=== PATIENT | female | born 1925 | race Caucasian/White ===

== ENCOUNTER 2017-03-08 09:42 | Inpatient (IN) | payer OTHER, BC ==
[~2017-03-08] VITALS: Ht 162.6 cm; Wt 73.2 kg
[~2017-03-08 09:42] MED LIST: ATV1 PO; CHOL100027 PO; CITA40TA12 PO; DTR/5 PO; FURO-85 PO; HYZ/50125 PO; MCRK/10 PO; METO-217 PO; RIVA1TAB4 PO; SULF800T23 PO
[2017-03-08] MEDS ORDERED: PANTOprazole INJ 80 MG in DEXTROSE 5% 100ML 100 ML IV SCH (11:00)
[2017-03-08 11:05] LABS: INR 1.1 (0.9-1.1); PTT PATIENT 31.4 SECONDS (21.0-31.0)
[2017-03-08 11:09] LABS: BASO % 0.4 %; BASO ABS # 0.03 K/uL (0-0.2); EOS % 2.3 %; EOS ABS # 0.18 K/uL (0-0.5); HEMATOCRIT 30.8 % (37-47); HEMOGLOBIN 9.5 g/dL (12.0-16.0); IG# 0.01 K/uL (0.00-0.02); LYMPH % 24.5 %; LYMPH ABS # 1.89 K/uL (1.2-3.4); MEAN CELL VOLUME 93.3 fL (80-100); MEAN CORPUSCULAR HEMOGLOBIN 28.8 pg (25-34); MEAN CORPUSCULAR HGB CONC 30.8 g/dl (32-36); MONO % 4.8 %; MONO ABS # 0.37 K/uL (0.11-0.59); NEUT % 67.9 %; NEUT ABS # 5.22 K/uL (1.4-6.5); PLATELET COUNT 272 K/uL (130-400); RED CELL DISTRIBUTION WIDTH CV 16.4 % (11.5-14.5); RED CELL DISTRIBUTION WIDTH SD 56.7 fL (36.4-46.3)
[2017-03-08] MEDS ORDERED: [UNRECOGNIZED DRUG - CODE] TOP (11:09)
[2017-03-08] MEDS ORDERED: METO-217 PO (11:09)
[2017-03-08] MEDS ORDERED: LOSA50TA6 PO (11:09)
[2017-03-08] MEDS ORDERED: SENNTAB23 PO (11:09)
[2017-03-08] MEDS ORDERED: LORA-741 PO (11:09)
[2017-03-08] MEDS ORDERED: RIVA1.5T PO (11:09)
[2017-03-08] MEDS ORDERED: LEVO-17 PO (11:09)
[2017-03-08] MEDS ORDERED: CHOL1000 PO (11:09)
[2017-03-08] MEDS ORDERED: ACET-1256 PO (11:09)
[2017-03-08] MEDS ORDERED: CITA20TA9 PO (11:09)
[2017-03-08] MEDS ORDERED: FURO-85 PO (11:09)
[2017-03-08] MEDS ORDERED: DICL1GEL12 TOP (11:09)
[2017-03-08 11:24] LABS: ALBUMIN 2.7 gm/dl (3.4-5.0); BLOOD UREA NITROGEN 57 mg/dl (7-18); CALCIUM 8.4 mg/dl (8.5-10.1); CARBON DIOXIDE 23 mmol/L (21-32); CREATININE 1.81 mg/dl (0.60-1.20); GLUCOSE 87 mg/dl (70-99); LIPASE 110 U/L (73-393); POTASSIUM 5.2 mmol/L (3.5-5.1); SODIUM 138 mmol/L (136-145)
[2017-03-08 11:35] LABS: ALKALINE PHOSPHATASE 128 U/L (45-117); ALT/SGPT 15 U/L (12-78); AST/SGOT 22 U/L (15-37); TOTAL PROTEIN 6.9 gm/dl (6.4-8.2)
[2017-03-08] MEDS ORDERED: DEXTROSE 50% 50 ML SYR IV STA (11:39)
[2017-03-08] MEDS ORDERED: NovoLIN-R INSULIN PER UNIT CHARGE IV STA (11:39)
[2017-03-08] MEDS ORDERED: ONDANSETRON INJ 2 MG/ML 2 ML VIAL IV PRN (12:45)
[2017-03-08] MEDS ORDERED: FURO20TA PO (13:23)
[2017-03-08] MEDS ORDERED: CONSULT PHARMACY STA (13:29)
[2017-03-08 13:45] VITALS: Ht 162.6 cm; Wt 73.2 kg
[2017-03-08] MEDS ORDERED: DOCUSATE SODIUM/SENNA 50/8.6MG TAB PO PRN (13:45)
--- NOTE | 2017-03-08 14:07 | Gastrointestinal Consultation ---
Gastrointestinal Consultation Date of Consultation: Mar 08, 2017 Attending Physician: WILLIE Palomo Consulting Physician: Miguel Reason for Consultation: melena History of Present Illness Patient is a 89 year old female w/ history of PE, afib on xarelto (last dose 03/07/17 at 1700) who presented through the ED for evaluation of diarrhea and dark stools. Pt was seen and evaluated, chart reviewed. Seen in the ED in collaboration with Dr. Rivera. Pt notes she was started on PO FE by her PCP for anemia. She notes prior to started FE she was having brown stools. Once she was started on FE, she was having dark, formed stools. No BRB. Woke up last night with urge to have BM. Had numerous episodes of dark, black stools. Again, no BRB. No abdominal pain. Has some nausea, no vomiting. Was on Bactrim for cellulitis of right leg. Today, no fever, chills, CP, SOB. She is cold. VSS. HGB 9.5. 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 Social History Smoking Status: Never Smoker Drug Use: none Marital Status: Housing Status: assisted living Occupation Status: retired Allergies Coded Allergies: Celecoxib (Verified Adverse Reaction, Unknown, gi upset, 03/08/17) Current Medications Home Meds and Scripts Medications Dose Route/Sig Max Daily Dose Days Date Category Dose Instructions Lasix (Furosemide) 20 Mg Tab 20 Mg PO 3XWK PRN 03/08/17 Reported Cozaar (Losartan Potassium) 50 Mg Tab 50 Mg PO PM 03/08/17 Reported Vitamin D3 (Cholecalciferol) 1,000 Unit Tab 1 Tab PO DAILY 90 03/08/17 Reported Tylenol (Acetaminophen) 500 Mg Tab 500 Mg PO BID 03/08/17 Reported Celexa (Citalopram Hydrobromide) 20 Mg Tab 20 Mg PO QAM 03/08/17 Reported Toprol Xl (Metoprolol Succinate) 50 Mg Tabcr 50 Mg PO QAM 03/08/17 Reported Stool Softener (Sennosides-Docusate Sodium) 1 Tab Tab 1 Tab PO DAILY PRN 03/08/17 Reported Xarelto (Rivaroxaban) 15 Mg Tab 15 Mg PO PM 03/08/17 Reported Tinactin (Tolnaftate) 1 % Aer Unknown Dose TOP UD 03/08/17 Reported APPLY BETWEEN ABDOMINAL FOLDS Ativan (Lorazepam) 0.5 Mg Tab 0.5 Mg PO TID PRN 03/08/17 Reported Voltaren 1% Top Gel (Diclofenac Sodium (Topical)) 1 % Gel 2 Gm TOP TID 03/08/17 Reported Bactrim Ds 800MG/160MG (Trimethoprim/Sulfamethoxazole) Tab 1 Tab PO BID 02/26/17 Reported Review of Systems Respiratory: No cough, No shortness of breath Cardiac: No chest pain, No edema Abdomen: + diarrhea, + GI bleeding, No pain, No nausea, No vomiting, No constipation Physical Exam Date Time Temp Pulse Resp B/P (MAP) Pulse Ox O2 Delivery O2 Flow Rate FiO2 03/08/17 13:18 96 03/08/17 12:24 86 18 124/68 94 Room Air 03/08/17 10:14 90 03/08/17 09:55 36.5 91 19 119/57 97 Room Air General Appearance: no apparent distress ENT: hearing grossly normal Neck: supple Respiratory/Chest: lungs clear, normal breath sounds Abdomen: normal bowel sounds, non tender, soft, no organomegaly Extremities: + pertinent finding (RLE cellulitis) Neurologic/Psych: alert, normal mood/affect Skin: + pallor Laboratory Results Last 24 Hours Test 03/08/17 10:15 03/08/17 10:40 03/08/17 12:19 White Blood Count 7.70 K/uL Red Blood Count 3.30 M/uL Hemoglobin 9.5 g/dL Hematocrit 30.8 % Mean Corpuscular Volume 93.3 fL Mean Corpuscular Hemoglobin 28.8 pg Mean Corpuscular Hemoglobin Concent 30.8 g/dl Platelet Count 272 K/uL Mean Platelet Volume 9.0 fL Neutrophils (%) (Auto) 67.9 % Lymphocytes (%) (Auto) 24.5 % Monocytes (%) (Auto) 4.8 % Eosinophils (%) (Auto) 2.3 % Basophils (%) (Auto) 0.4 % Neutrophils # (Auto) 5.22 K/uL Lymphocytes # (Auto) 1.89 K/uL Monocytes # (Auto) 0.37 K/uL Eosinophils # (Auto) 0.18 K/uL Basophils # (Auto) 0.03 K/uL RDW Standard Deviation 56.7 fL RDW Coefficient of Variation 16.4 % Immature Granulocyte % (Auto) 0.1 % Immature Granulocyte # (Auto) 0.01 K/uL Prothrombin Time 12.0 SECONDS Prothromb Time International Ratio 1.1 Activated Partial Thromboplast Time 31.4 SECONDS Partial Thromboplastin Ratio 1.2 Sodium Level 138 mmol/L Potassium Level 5.2 mmol/L Chloride Level 108 mmol/L Carbon Dioxide Level 23 mmol/L Anion Gap 7.0 mmol/L Blood Urea Nitrogen 57 mg/dl Creatinine 1.81 mg/dl Est Creatinine Clear Calc Drug Dose 20.7 ml/min Estimated GFR () 28.2 Estimated GFR (Non- 24.4 BUN/Creatinine Ratio 31.4 Random Glucose 87 mg/dl Calcium Level 8.4 mg/dl Total Bilirubin 0.4 mg/dl Direct Bilirubin 0.2 mg/dl Aspartate Amino Transf (AST/SGOT) 22 U/L Alanine Aminotransferase (ALT/SGPT) 15 U/L Alkaline Phosphatase 128 U/L Troponin I < 0.015 ng/ml Total Protein 6.9 gm/dl Albumin 2.7 gm/dl Lipase 110 U/L Chemistry Specimen Hemolysis Urine Color YELLOW Urine Appearance TURBID Urine pH 5.5 Urine Specific [place] 1.017 Urine Protein TRACE Urine Glucose (UA) NEG Urine Ketones NEG Urine Occult Blood 2+ Urine Nitrite POS Urine Bilirubin NEG Urine Urobilinogen NEG Urine Leukocyte Esterase LARGE Urine WBC (Auto) >30 /hpf Urine RBC (Auto) 5-10 /hpf Urine Hyaline Casts (Auto) 1-5 /lpf Urine Epithelial Cells (Auto) 10-20 /lpf Urine Bacteria (Auto) 4+ Urine Crystals Bedside Glucose 86 mg/dl Impression Patient is a 89 year old female w/ history of afib and PE on xarelto (last dose 03/07/17) who presented to the ED for evaluation of diarrhea, stools are dark x 24 hours. No hematemesis, coffee ground emesis, BRBPR. Was started on FE last week after found to be anemic by PCP. Was on Bactrim for cellulitis. UGI bleed vs infectious colitis. will screen for stool and plan for EGD tomorrow. GI is ok for liquid diet today. Plan Hold anticoagulation Trend H&H Monitor stools Transfuse PRN IV PPI Stool culture, stool for c.diff NPO after midnight for EGD if c.diff is negative Please call with questions or concerns. I saw and evaluated the patient. She was brought to the emergency room with new onset diarrhea. She notes that she's had black stool for approximately 2 weeks since starting Xarelto and iron therapy for anemia. Patient notes that it is somewhat sticky but is unable to further described it. She denies having nausea vomiting fevers chills or difficulty with swallowing. She recalls having several upper endoscopies in the past due to problems with dysphagia. Her last upper endoscopy was over 10 years ago. She is unsure if she had a recent colonoscopy. Physical examination No obvious distress No abdominal tenderness Impression: Patient referred for altered bowel habits and a question of melena. Unfortunately she is on iron therapy which makes determine if she has a gastric intestinal hemorrhage somewhat difficult. I would suggest that the stool be screened for C. difficile as she has had a recent course of antibiotics. I would also recommend she be started on a Protonix drip. We will plan for upper endoscopy on Sunday as the patient had her last dose of Xarelto yesterday. Recommendations May have clear liquids today Protonix drip Nothing by mouth at midnight for upper endoscopy tomorrow Send stool for C. difficile Please call with any questions or concerns
[2017-03-08] MEDS ORDERED: VANCOMYCIN CONSULT ACTIVE PRN (14:15)
[2017-03-08] MEDS ORDERED: PIPERACILL/TAZOBAC CONSULT ACTIVE PRN (14:30)
[2017-03-08] MEDS ORDERED: PIPERACILLIN/TAZOBACTAM 4.5 GM/100ML D5W IV ONE (14:45)
--- NOTE | 2017-03-08 14:48 | DIAGNOSTIC IMAGING REPORT ---
R FOOT 2 VIEWS CLINICAL HISTORY: Nonhealing wounds. Evaluate for osteomyelitis. COMPARISON: 12/30/2014 DISCUSSION: The bones are osteopenic. There is a plantar calcaneal spur. There are no acute fractures. Evaluation of the phalanges is difficult as they are in flexion. There is absence of the distal one half of the proximal phalanx of the second toe. Correlation with prior surgical history will be necessary. There is foreshortening of distal phalanx the great toe. Correlation with prior surgery will be necessary. IMPRESSION: 1. Absence of the distal one half of the proximal phalanx of the second toe. Correlation with prior surgical history is recommended. In the absence of prior surgery, the findings are viewed as suspicious for osteomyelitis 2. There is foreshortening of distal phalanx of the great toe. Correlation with prior surgical history is recommended. In the absence of prior surgery, the findings are viewed as suspicious for osteomyelitis. 3. Difficult study to interpret due to flexion deformities of the phalanges. Electronically signed by: Adarsh Cortes M.D. 03/08/2017 2:46 PM Dictated Date/Time: 03/08/2017 2:42 PM
[2017-03-08] MEDS ORDERED: VANCOMYCIN IV 1,750 MG in SODIUM CHLORIDE 0.9% 500ML 500 ML IV ONE (15:00)
[2017-03-08 15:27] VITALS: BP 115/64; PULSE 98; TEMP 36.7; O2SAT 99
--- NOTE | 2017-03-08 15:37 | EMERGENCY ROOM VISIT NOTE ---
History Report prepared by Jitendra: Adeel King Under the Supervision of: Dr. Bob Guzman M.D. First contact with patient: 10:33 Chief Complaint: NAUSEA Stated Complaint: ILLNESS Nursing Triage Summary: Nausea and inablity to eat for several days with large black BM this a.m. Patient just taken off of Bactrim and iron two days ago. History of Present Illness The patient is a 89 year old female who presents to the Emergency Room with complaints of intermittent episodes of "black, tarry" stool beginning a few days ago. She was on iron tablets, but stopped taking them two days ago. She is on Xarelto, and had her most recent dose at 5pm yesterday (about 16.5 hours ago) . The patient also complains of nausea. She was recently on Bactrim for cellulitis of the legs. She states that she has been nauseous for the past five days. The patient denies fevers, chest pain, SOB, abdominal pain, or vomiting. She lives alone. She states that she has noticed some blood in her stool recently as well. The patient has a history of black stool while taking iron tablets. Source of History: patient Onset: A few days ago Position: other (global) Symptom Intensity: Quality: other ("black, tarry" stool) Timing: intermittent (episodes) Associated Symptoms: + nausea, No fevers, No chest pain, No SOB, No vomiting , No abdominal pain Review of Systems See HPI for pertinent positives & negatives. A total of 10 systems reviewed and were otherwise negative. Past Medical & Surgical Medical Problems: (1) WILLIAN (acute kidney injury) (2) Arthritis of back (3) Arthritis of knee, right (4) Arthritis of left knee (5) Atrial fibrillation (6) Bilateral leg weakness (7) DVT (deep venous thrombosis) (8) Pulmonary embolism Surgical Problems: (1) History of back surgery Family History Patient reports no known family medical history. Social History Smoking Status: Never Smoker Drug Use: none Marital Status: Housing Status: assisted living Occupation Status: retired Current/Historical Medications Scheduled Acetaminophen (Tylenol), 500 MG PO BID Cholecalciferol (Vitamin D3), 1 TAB PO DAILY Citalopram Hydrobromide (Celexa), 20 MG PO QAM Diclofenac Sodium (Topical) (Voltaren 1% Top Gel), 2 GM TOP TID Losartan Potassium (Cozaar), 50 MG PO PM Metoprolol Succinate (Toprol Xl), 50 MG PO QAM Rivaroxaban (Xarelto), 15 MG PO PM Sulfa/Trimethoprim (Bactrim Ds 800MG/160MG), 1 TAB PO BID Tolnaftate (Tinactin), Unknown Dose TOP UD Scheduled PRN Furosemide (Lasix), 20 MG PO 3XWK PRN for edema Lorazepam (Ativan), 0.5 MG PO TID PRN for Anxiety Sennosides-Docusate Sodium (Stool Softener), 1 TAB PO DAILY PRN for Constipation Allergies Coded Allergies: Celecoxib (Verified Adverse Reaction, Unknown, gi upset, 03/08/17) Physical Exam Vital Signs Date Time Temp Pulse Resp B/P (MAP) Pulse Ox O2 Delivery O2 Flow Rate FiO2 03/08/17 14:00 70 20 101/54 100 Room Air 03/08/17 13:45 Room Air 03/08/17 13:18 96 03/08/17 12:24 86 18 124/68 94 Room Air 03/08/17 10:14 90 03/08/17 09:55 36.5 91 19 119/57 97 Room Air Physical Exam Constitutional: Vital signs reviewed. Eyes: Pupils are equal round reactive to light. Conjunctiva are noninjected. ENT: Pharynx is clear without erythema or exudate. Mucous membranes are moist. Neck supple without meningeal signs. Respiratory: Clear to auscultation bilaterally. Breath sounds are equal bilaterally. Cardiovascular: Irregularly irregular rhythm and normal rate. No rubs or gallops. GI: Soft, nondistended and nontender. Bowel sounds are present. Rectal: Guaiac positive, melanotic stool. No gross blood. Musculoskeletal: Excoriations to the right leg. Bandaged toes. Integumentary: No cyanosis. Neurological: The patient is awake and alert. No focal deficits. Psychiatric: Normal affect. Medical Decision & Procedures Laboratory Results 03/08/17 10:15 Red Blood Count 3.30, Mean Corpuscular Volume 93.3, Mean Corpuscular Hemoglobin 28.8, Mean Corpuscular Hemoglobin Concent 30.8, Mean Platelet Volume 9.0, Neutrophils (%) (Auto) 67.9, Lymphocytes (%) (Auto) 24.5, Monocytes (%) (Auto) 4.8, Eosinophils (%) (Auto) 2.3, Basophils (%) (Auto) 0.4, Neutrophils # (Auto) 5.22, Lymphocytes # (Auto) 1.89, Monocytes # (Auto) 0.37, Eosinophils # (Auto) 0.18, Basophils # (Auto) 0.03 03/08/17 10:15 Test 03/08/17 10:15 03/08/17 10:40 03/08/17 14:53 White Blood Count 7.70 K/uL (4.8-10.8) Red Blood Count 3.30 M/uL (4.2-5.4) Hemoglobin 9.5 g/dL (12.0-16.0) Hematocrit 30.8 % (37-47) Mean Corpuscular Volume 93.3 fL (80-100) Mean Corpuscular Hemoglobin 28.8 pg (25-34) Mean Corpuscular Hemoglobin Concent 30.8 g/dl (32-36) Platelet Count 272 K/uL (130-400) Mean Platelet Volume 9.0 fL (7.4-10.4) Neutrophils (%) (Auto) 67.9 % Lymphocytes (%) (Auto) 24.5 % Monocytes (%) (Auto) 4.8 % Eosinophils (%) (Auto) 2.3 % Basophils (%) (Auto) 0.4 % Neutrophils # (Auto) 5.22 K/uL (1.4-6.5) Lymphocytes # (Auto) 1.89 K/uL (1.2-3.4) Monocytes # (Auto) 0.37 K/uL (0.11-0.59) Eosinophils # (Auto) 0.18 K/uL (0-0.5) Basophils # (Auto) 0.03 K/uL (0-0.2) RDW Standard Deviation 56.7 fL (36.4-46.3) RDW Coefficient of Variation 16.4 % (11.5-14.5) Immature Granulocyte % (Auto) 0.1 % Immature Granulocyte # (Auto) 0.01 K/uL (0.00-0.02) Prothrombin Time 12.0 SECONDS (9.0-12.0) Prothromb Time International Ratio 1.1 (0.9-1.1) Activated Partial Thromboplast Time 31.4 SECONDS (21.0-31.0) Partial Thromboplastin Ratio 1.2 Anion Gap 7.0 mmol/L (3-11) Est Creatinine Clear Calc Drug Dose 20.7 ml/min Estimated GFR () 28.2 Estimated GFR (Non- 24.4 BUN/Creatinine Ratio 31.4 (10-20) Calcium Level 8.4 mg/dl (8.5-10.1) Total Bilirubin 0.4 mg/dl (0.2-1) Direct Bilirubin 0.2 mg/dl (0-0.2) Aspartate Amino Transf (AST/SGOT) 22 U/L (15-37) Alanine Aminotransferase (ALT/SGPT) 15 U/L (12-78) Alkaline Phosphatase 128 U/L (45-117) Troponin I < 0.015 ng/ml (0-0.045) Total Protein 6.9 gm/dl (6.4-8.2) Albumin 2.7 gm/dl (3.4-5.0) Lipase 110 U/L (73-393) Chemistry Specimen Hemolysis Urine Color YELLOW Urine Appearance TURBID (CLEAR) Urine pH 5.5 (4.5-7.5) Urine Specific [place] 1.017 (1.000-1.030) Urine Protein TRACE (NEG) Urine Glucose (UA) NEG (NEG) Urine Ketones NEG (NEG) Urine Occult Blood 2+ (NEG) Urine Nitrite POS (NEG) Urine Bilirubin NEG (NEG) Urine Urobilinogen NEG (NEG) Urine Leukocyte Esterase LARGE (NEG) Urine WBC (Auto) >30 /hpf (0-5) Urine RBC (Auto) 5-10 /hpf (0-4) Urine Hyaline Casts (Auto) 1-5 /lpf (0-5) Urine Epithelial Cells (Auto) 10-20 /lpf (0-5) Urine Bacteria (Auto) 4+ (NEG) Urine Crystals (NONE PRSENT) Bedside Glucose 80 mg/dl (70-90) Laboratory results as reviewed by me. Medications Administered Medications (Trade) Dose Ordered Sig/Everardo Route Start Time Stop Time Status Last Admin Dose Admin Insulin Human Regular (novoLIN-R U-100 PER UNIT) 5 units NOW STAT IV 03/08/17 11:39 03/08/17 11:41 DC 03/08/17 11:39 5 UNITS Dextrose (Dextrose 50% 50ML Syringe) 30 ml NOW STAT IV 03/08/17 11:39 03/08/17 11:41 DC 03/08/17 12:18 30 ML ECG Indication: other (hyperkalemia) Rate (beats per minute): 85 Rhythm: atrial fibrillation Findings: other (Low voltage QRS. No prolonged QT or hyperacute T-waves. ) ED Course 1040: The patient was evaluated in room C6. A complete history and physical exam was performed. 1100: Ordered Pantoprazole Sodium 80 mg/Dextrose 120 mL @ 400 mL/hr IV. 1139: Ordered Dextrose 50% 50 mL IV, Novolin-R U-100 per units 5 units IV. 1140: I reassessed the patient. She is resting comfortably. Her blood pressure is 116/65, and her blood pressure is 90 bpm. I discussed test results and treatment plan with the patient. She verbalized agreement and understanding of the treatment plan. The patient will be evaluated for further management. Medical Decision This is an 89-year-old female who presents with black and tarry stools. Differential diagnosis includes GI bleed, ingestion of iron tablets, anemia, hypercoagulable state, peptic ulcer disease. I did perform a limited focused review of portions of the patient's old chart on the electronic medical record. The patient has had no recent pertinent visits to this hospital. I did evaluate the patient as noted above. Patient is presenting with black and tarry stools. She is guaiac positive on exam. She is on Xarelto which she took at 5 PM yesterday. This is for atrial fibrillation. IV access was established. The patient was placed on a continuous school lunch monitor. I did treat her with Protonix IV. I did order and personally review the patient's 12- lead EKG as described above. I did order and review the patient's blood work as noted in the electronic medical record. She is anemic and has acute kidney injury with hyperkalemia. I did treat her with IV insulin and glucose. Urinalysis does show signs of infection as well. I did discuss case with the hospitalist and outsole caser. Medication Reconcilliation Current Medication List: was personally reviewed by me Blood Pressure Screening Patient's blood pressure: Normal blood pressure Blood pressure disposition: Did not require urgent referral Consults Time Called: 1144 Consulting Phys[facility] Returned Call: [phone] I spoke with Genna TAPIA of [facility]. We discussed the patient and her results. The patient will be further evaluated by Trent. Impression Primary Impression: Acute GI bleeding Additional Impressions: Anticoagulated Anemia WILLIAN (acute kidney injury) Hyperkalemia UTI (urinary tract infection) Critical Care I have personally spent greater than 35 minutes of critical care time in the direct management of this patient. This includes bedside care, interpretation of diagnostic studies, and testing, discussion with consultants, patient, and family members, and other required patient management activities. This 35 minutes is in excess of all separately billable procedures. Scribe Attestation The scribe's documentation has been prepared under my direct and personally reviewed by me in its entirety. I confirm that the note above accurately reflects all work, treatment, procedures, and medical decision making performed by me. Departure Information Dispostion Being Evaluated By Hospitalist Referrals Asia Burton M.D. (PCP) Patient Instructions My [facility] Problem Qualifiers Additional Impressions: Anemia Anemia type: unspecified type Qualified Codes: D64.9 - Anemia, unspecified UTI (urinary tract infection) Urinary tract infection type: site unspecified Hematuria presence: with hematuria Qualified Codes: N39.0 - Urinary tract infection, site not specified ; R31.9 - Hematuria, unspecified
[2017-03-08] MEDS ORDERED: PIPERACILL/TAZOBAC IV 3.375 GM in DEXTROSE 5% 100ML IV ONE (16:30)
--- NOTE | 2017-03-08 16:44 | Pharmacy Progress Note ---
Pharmacy Abx Dose Short Note Date of Service Mar 08, 2017. Assessment & Plan Assessment 89 year old female receiving VANCOMYCIN AND ZOSYN for treatment of UTI/wound infection. Patient with poor renal function, this will be monitored closely. It is noted that she was on bactrim as an outpatient. Day # 1 of antimicrobial therapy. Plan Vancomycin. * Load with 1750mg X 1 now (never given in ER, confirmed with ER nurse) * Initiate dose of 1250 mg IV every 48 hours on 03/10 * Trough or random level ordered as clinically indicated Zosyn * 3.375mg now (4.5 dose never given in the ER, confirmed with nurse) * 3.375mg q 8, will adjust if renal function declines again tomorrow Pharmacy will continue to follow and will adjust dose/frequency as necessary. Thank you.
[2017-03-08] MEDS: SODIUM CHLORIDE 0.9% 1000ML 1,000 ML IV SCH (16:54)
[2017-03-08] MEDS ORDERED: PANTOprazole INJ 80 MG in DEXTROSE 5% 100ML IV ONE (17:30)
--- NOTE | 2017-03-08 17:49 | NUR ---
Pt seen due to WOCN notification. Please refer to linked assessment Addendum: 03/08/17 at [address] Amended: Links added.
--- NOTE | 2017-03-08 18:12 | History and Physical ---
History & Physical Date & Time of Service: Mar 08, 2017 ~ 12:30 Chief Complaint: Diarrhea Primary Care Physician: Asia Burton M.D. History of Present Illness 89 year old female who presents to the ED with diarrhea. Patient is somewhat a poor historian. I discussed the case with patient's PCP, Dr. Burton. She reports that the patient had been living with her daughter in [place] until about 4 months ago. She saw the patient in the office at the beginning of January and labs showed a new anemia with hgb 9.9 with low iron levels. She was started on iron replacement at that time. Patient also has been following with the wound care center for wounds of her right foot. She was recently placed on Bactrim due to would culture from 02/19/17 growing MRSA. Patient reports her stools have been dark since starting the iron. She also has been constipated at times. She reports nausea and poor appetite since being on the Bactrim. This morning patient reports severe diarrhea that was black in color. She denies BRBPR, abdominal pain, or vomiting. She denies fever and chills. No chest pain or shortness of breath. She denies lightheadedness, dizziness, diaphoresis, or syncopal events. No urinary symptoms. In the ER, patient's hgb is 9.5, creat is 1.8 (up from 0.9 baseline), K+ is mildly high at 5.2. Patient was given insulin and D50 and Protonix 80mg IV. Past Medical/Surgical History Medical Problems: (1) Acoustic neuroma Status: Chronic (2) Atrial fibrillation Status: Chronic (3) Discitis Permanent Comment: s/p surgery resulting in incomplete paraplegia Status: Resolved (4) Duodenitis Status: Resolved (5) Esophageal stricture Status: Chronic (6) H. pylori infection Status: Resolved (7) HTN (hypertension) Status: Chronic (8) Incomplete paraplegia Status: Chronic (9) MRSA (methicillin resistant Staphylococcus aureus) Status: Chronic (10) Pulmonary embolism Status: Chronic (11) PVD (peripheral vascular disease) Status: Chronic Surgical Problems: (1) History of back surgery Status: Chronic (2) S/P dilatation of esophageal stricture Status: Chronic Family History non contributory due to patient's age Social History Smoking Status: Never Smoker Alcohol Use: none Housing status: lives alone Multi-Drug Resistant Organisms History of MDRO: Yes Type of MDRO: MRSA Allergies Coded Allergies: Celecoxib (Verified Adverse Reaction, Unknown, gi upset, 03/08/17) Home Medications Scheduled Acetaminophen (Tylenol), 500 MG PO BID Cholecalciferol (Vitamin D3), 1 TAB PO DAILY Citalopram Hydrobromide (Celexa), 20 MG PO QAM Diclofenac Sodium (Topical) (Voltaren 1% Top Gel), 2 GM TOP TID Losartan Potassium (Cozaar), 50 MG PO PM Metoprolol Succinate (Toprol Xl), 50 MG PO QAM Rivaroxaban (Xarelto), 15 MG PO PM Sulfa/Trimethoprim (Bactrim Ds 800MG/160MG), 1 TAB PO BID Tolnaftate (Tinactin), Unknown Dose TOP UD Scheduled PRN Furosemide (Lasix), 20 MG PO 3XWK PRN for edema Lorazepam (Ativan), 0.5 MG PO TID PRN for Anxiety Sennosides-Docusate Sodium (Stool Softener), 1 TAB PO DAILY PRN for Constipation Review of Systems ROS per HPI, all other systems reviewed and negative Physical Exam Vital Signs Date Time Temp Pulse Resp B/P (MAP) Pulse Ox O2 Delivery O2 Flow Rate FiO2 03/08/17 15:27 36.7 98 18 115/64 (81) 99 Room Air 03/08/17 14:00 70 20 101/54 100 Room Air 03/08/17 13:45 Room Air 03/08/17 13:18 96 03/08/17 12:24 86 18 124/68 94 Room Air 03/08/17 10:14 90 03/08/17 09:55 36.5 91 19 119/57 97 Room Air General Appearance: WD/WN, no apparent distress, + pertinent finding ( chronically ill appearing) Head: normocephalic, atraumatic Eyes: normal inspection, EOMI, sclerae normal ENT: hearing grossly normal, + pertinent finding (dry mucous membranes) Neck: supple, no JVD, trachea midline Respiratory/Chest: lungs clear, normal breath sounds, no respiratory distress Cardiovascular: no edema, + irregularly irregular (rate controlled), + abnormal peripheral pulses (diminished pedal pulses) Abdomen/GI: normal bowel sounds, non tender, soft, no organomegaly Extremities/Musculoskelatal: normal inspection, no calf tenderness, no pedal edema Neurologic/Psych: no motor/sensory deficits, alert, normal mood/affect, oriented x 3 Skin: + pertinent finding (right foot with ulcers noted to the 2nd and 3rd toes , base of the 2nd metatarsal, large ulcer to the dorsal aspect of the foot; foul odor; scattered abrasions over the anterior aspect of the right lu) Diagnostics Laboratory Results Results Past 24 Hours Test 03/08/17 10:15 03/08/17 10:40 03/08/17 12:19 03/08/17 14:53 Range/Units White Blood Count 7.70 4.8-10.8 K/uL Red Blood Count 3.30 4.2-5.4 M/uL Hemoglobin 9.5 12.0-16.0 g/dL Hematocrit 30.8 37-47 % Mean Corpuscular Volume 93.3 80-100 fL Mean Corpuscular Hemoglobin 28.8 25-34 pg Mean Corpuscular Hemoglobin Concent 30.8 32-36 g/dl Platelet Count 272 130-400 K/uL Mean Platelet Volume 9.0 7.4-10.4 fL Neutrophils (%) (Auto) 67.9 % Lymphocytes (%) (Auto) 24.5 % Monocytes (%) (Auto) 4.8 % Eosinophils (%) (Auto) 2.3 % Basophils (%) (Auto) 0.4 % Neutrophils # (Auto) 5.22 1.4-6.5 K/uL Lymphocytes # (Auto) 1.89 1.2-3.4 K/uL Monocytes # (Auto) 0.37 0.11-0.59 K/uL Eosinophils # (Auto) 0.18 0-0.5 K/uL Basophils # (Auto) 0.03 0-0.2 K/uL RDW Standard Deviation 56.7 36.4-46.3 fL RDW Coefficient of Variation 16.4 11.5-14.5 % Immature Granulocyte % (Auto) 0.1 % Immature Granulocyte # (Auto) 0.01 0.00-0.02 K/uL Prothrombin Time 12.0 9.0-12.0 SECONDS Prothromb Time International Ratio 1.1 0.9-1.1 Activated Partial Thromboplast Time 31.4 21.0-31.0 SECONDS Partial Thromboplastin Ratio 1.2 Sodium Level 138 136-145 mmol/L Potassium Level 5.2 3.5-5.1 mmol/L Chloride Level 108 98-107 mmol/L Carbon Dioxide Level 23 21-32 mmol/L Anion Gap 7.0 3-11 mmol/L Blood Urea Nitrogen 57 7-18 mg/dl Creatinine 1.81 0.60-1.20 mg/dl Est Creatinine Clear Calc Drug Dose 20.7 ml/min Estimated GFR () 28.2 Estimated GFR (Non- 24.4 BUN/Creatinine Ratio 31.4 10-20 Random Glucose 87 70-99 mg/dl Calcium Level 8.4 8.5-10.1 mg/dl Total Bilirubin 0.4 0.2-1 mg/dl Direct Bilirubin 0.2 0-0.2 mg/dl Aspartate Amino Transf (AST/SGOT) 22 15-37 U/L Alanine Aminotransferase (ALT/SGPT) 15 12-78 U/L Alkaline Phosphatase 128 45-117 U/L Troponin I < 0.015 0-0.045 ng/ml Total Protein 6.9 6.4-8.2 gm/dl Albumin 2.7 3.4-5.0 gm/dl Lipase 110 73-393 U/L Chemistry Specimen Hemolysis Urine Color YELLOW Urine Appearance TURBID CLEAR Urine pH 5.5 4.5-7.5 Urine Specific [place] 1.017 1.000-1.030 Urine Protein TRACE NEG Urine Glucose (UA) NEG NEG Urine Ketones NEG NEG Urine Occult Blood 2+ NEG Urine Nitrite POS NEG Urine Bilirubin NEG NEG Urine Urobilinogen NEG NEG Urine Leukocyte Esterase LARGE NEG Urine WBC (Auto) >30 0-5 /hpf Urine RBC (Auto) 5-10 0-4 /hpf Urine Hyaline Casts (Auto) 1-5 0-5 /lpf Urine Epithelial Cells (Auto) 10-20 0-5 /lpf Urine Bacteria (Auto) 4+ NEG Urine Crystals NONE PRSENT Bedside Glucose 86 80 70-90 mg/dl Test 03/08/17 16:21 Range/Units Microbiology Results 03/08/17 Blood Culture, Received Pending 03/08/17 Blood Culture, Received Pending 03/08/17 Urine Culture, Received Pending Diagnostic Radiology RIGHT FOOT XR IMPRESSION: 1. Absence of the distal one half of the proximal phalanx of the second toe. Correlation with prior surgical history is recommended. In the absence of prior surgery, the findings are viewed as suspicious for osteomyelitis 2. There is foreshortening of distal phalanx of the great toe. Correlation with prior surgical history is recommended. In the absence of prior surgery, the findings are viewed as suspicious for osteomyelitis. 3. Difficult study to interpret due to flexion deformities of the phalanges. Impression Assessment and Plan WILLIAN - admit to tele - patient presenting with diarrhea x 1 day, also nausea and poor appetite x 1 week; in the ED, found to have creat 1.8 (up from normal baseline) - WILLIAN likely prerenal due to poor PO intake in combination with Bactrim and ARB use - d/c Bactrim, hold ARB - IVF, follow renal functions ANEMIA - found to have hgb 9.9 about month ago at PCPs office - started on iron supplement - since starting iron, stools have been dark in color - difficult to exclude GI bleeding; patient also on Xarelto for a. fib and PE - hgb 9.5 today, no signs of gross bleeding - per GI, will have clear liquids tonight and NPO after midnight for EGD tomorrow; start PPI drip - hold Xarelto however need to resume ELENA given history of afib and life threatening PE NON HEALING RIGHT FOOT ULCERS, PAD - following with the wound center - culture from 02/19/17 growing MRSA; patient was started on Bactrim - patient was also evaluated by Dr. Mercer for possible vascular intervention - atrial US from 02/14/[address] Mercer note: right MARIBETH to be 0.59 consistent with moderate arterial insufficiency, 50-74% stenosis in the right distal SFA with possible short segment occlusion and collaterals, no significant disease in the left lower extremity system and MARIBETH was 0.94 - wound care consult - consult Dr. Mercer, case discussed with him - may need ID as well - foot XR concerning for possible osteomyelitis; unable to do MRI with contrast due to renal function; expect renal function to improve with IVF so will reevaluate renal function tomorrow and order MRI accordingly - empiric Vanco and Zosyn CHRONIC ATRIAL FIBRILLATION - rate controlled on metoprolol, will continue - anticoagulated with Xarelto, on hold as above HX PE - on Xarelto; on hold as above HTN - BP controlled, continue metoprolol - holding ARB due to WILLIAN DVT PROPHYLAXIS -SCDs due to anemia, possible GI bleed CODE STATUS - Patient is a full code without mechanical ventilation as per my discussion with her. DISPO - In my clinical judgment this beneficiary meets acute admission criteria, established by [facility], that includes being hospitalized through two midnights. - PT/OT, case management consults; expect patient will need placement post hospital stay ATTENDING ADDENDUM care coordinated with WILLIE Zimmerman please refer to her notes for full details, I agree with her notes patient seen and examined, records reviewed by myself as well on exam, patient seen resting in bed, comfortable denies abdominal pain, nausea no chest pain, dyspnea, dizziness minimal right foot pain no other symptoms VS noted and reviewed oriented x 2, not in distress, speaks in sentences with no effort nor accessory muscle use normal rate, regular rhythm, no murmurs clear breath sounds bilaterally non distended, soft, nontender right foot: (+) open wound on the dorsum with yellow discharge-surrounding erythema (+) open wound on the toes no neuro deficits Hg 9.5 Crea 1.8 ASSESSMENT/PLAN> DARK STOOLS, R/O GI BLEED IN THE SETTING OF XARELTO USE - also takes Iron supplement - Hg at baseline - GI Consulted, for EGD in AM Protonix ordered INFECTED CHRONIC RIGHT FOOT WOUND - follows at wound care center - ff up cultures - Vanco + Zosyn IV Xray no osteo- may need MRI if crea improves ACUTE RENAL FAILURE - IV fluids monitor other diagnoses and plan of care as per WILLIE Zimmerman's notes Kenney Kennedy MD Advanced Directives Existing Living Will: No Existing Power of Media Monitor: Yes VTE Prophylaxis VTE Risk Assessment Done? Y/N: Yes Risk Level: Moderate
[2017-03-08] MEDS: LORAZEPAM 0.5 MG TAB PO PRN (19:10)
[2017-03-08] MEDS ORDERED: PANTOprazole INJ 40 MG in SYRINGE 0 ML IV SCH (21:00)
[2017-03-08] MEDS: PANTOprazole INJ 40 MG in DEXTROSE 5% 100ML IV SCH (21:28)
[2017-03-08] MEDS: PIPERACILL/TAZOBAC IV 3.375 GM in DEXTROSE 5% 100ML IV SCH (22:23)
[2017-03-08 23:41] VITALS: BP 102/61; PULSE 99; TEMP 36.9; O2SAT 96
[2017-03-09] MEDS: PANTOprazole INJ 40 MG in DEXTROSE 5% 100ML IV SCH ×5 (02:42→21:54)
[2017-03-09] MEDS: SODIUM CHLORIDE 0.9% 1000ML 1,000 ML IV SCH ×3 (02:43→21:55)
--- NOTE | 2017-03-09 04:19 | NUR ---
ID NOTE: Patient is alert and oriented x4. VSS. She has been NPO except meds since midnight. She is a x2 assist turn/reposition. IV site is intact and patent infusing fluids per MD orders. Pain is controlled with PRN pain medications per MD orders. Call padilla and bedside table are within reach; she has been encouraged to ring for assistance. D/C uncertain at this time.
[2017-03-09] MEDS: PIPERACILL/TAZOBAC IV 3.375 GM in DEXTROSE 5% 100ML IV SCH ×3 (06:01→21:58)
[2017-03-09 07:04] VITALS: BP 105/55; PULSE 85; TEMP 36.8; O2SAT 99
--- NOTE | 2017-03-09 08:33 | Progress Note ---
Progress Note Date of Service Mar 09, 2017. (Brook Will ., WILLIE) Progress Note Pt seen and evaluated, chart reviewed. Offers no complaints this AM. Has continued to have stools, have not been able to get a stool sample to screen for c.diff. No fever, chills, CP, SOB, abd pain. Morning labs pending. No acute distress, heart RRR, lungs CTA but diminised at bases, abd soft, nondistended w / + bowel sounds. Please obtain stool sample for c.diff and culture. Please keep NPO for EGD. (Brook Will ., WILLIE) I saw and evaluated the patient. There has been no report of any recurrent melena overnight. We will proceed with upper endoscopy today to evaluate for evidence of peptic ulcer disease. (Christine Rivera, DO)
[2017-03-09 08:40] VITALS: BP 100/64; PULSE 76
[2017-03-09] MEDS: CHOLECALCIFEROL 1000 INTER.UNIT TAB PO SCH (08:44)
[2017-03-09] MEDS: CITALOPRAM 20 MG TAB PO SCH (08:44)
[2017-03-09] MEDS: METOPROLOL SUCC 50MG EXT REL TAB PO SCH (08:45)
[2017-03-09] MEDS: LORAZEPAM 0.5 MG TAB PO PRN ×2 (09:01→21:56)
--- NOTE | 2017-03-09 09:10 | NUR ---
Received referral to see pt for discharge planning. Spoke with Pt. Pt states she lives at home alone in a senior apartment ([address]) in [place]. Pt has elevator access to her apartment. Pt states her son Maximino, her boyfriend and two neighbors help her at home. She states she spends most of her time in a wheelchair. She is able to transfer to the wheelchair independently. She has a lift chair at home and wheelchair. Pt states she is active with [facility]. She states she is to start Waiver services next week with the [facility]. Pt plans to return home at discharge with [facility]. Referral faxed to [facility]. Case management will follow.
[2017-03-09 10:13] LABS: MEAN CELL VOLUME 93.6 fL (80-100); MEAN CORPUSCULAR HEMOGLOBIN 30.1 pg (25-34); MEAN CORPUSCULAR HGB CONC 32.1 g/dl (32-36); MEAN PLATELET VOLUME 8.7 fL (7.4-10.4); PLATELET COUNT 220 K/uL (130-400); RED CELL DISTRIBUTION WIDTH CV 16.3 % (11.5-14.5)
[2017-03-09 10:37] LABS: CALCIUM 7.7 mg/dl (8.5-10.1); CREATININE 1.45 mg/dl (0.60-1.20); POTASSIUM 4.4 mmol/L (3.5-5.1)
--- NOTE | 2017-03-09 11:54 | NUR ---
Received call from Ember at [facility]. she states they have had a lot of concerns about Pt at home. She does have a air value tester at the [facility]. But her waiver services are not going to be started for 8-12 weeks as she is on a waiting list. Babs states that Pt is not able to take care of herself. She relies heavily on her neighbors to help her. They neighbors are expressing frustration about having to help her all the time. She is asking them to do everything like cleaning and laundry. Per [facility], they are not doing it willingly. They only do it as she has no one else to help. Pt's does have a significant other that stays with her but he is blind and not able to help her at home. She has been incontinent lately and asking neighbors to help. Babs has been doing daily visits because there is no one that is teachable at home. They state Pt has a son, Maximino that lives in [place] but he does not come and visit to help often. (Maybe once or twice a month.) She states that Pt's POA is actually her daughter Radha. Her number is [phone]. She states that Radha and her daughter, Ginny are very involved with her care even though they live out of state. Pt also has a son, Edi that lives in [place] but he is not able to help much due to the distance. [facility] states they are not able to accept Pt in return as they do not feel it is a safe situation for Pt to return home. Will need to reach out to Pt's daughter, Radha and son, Edi to discuss concerns.
--- NOTE | 2017-03-09 13:22 | NUR ---
Left message for pt's daughter, Radha ([phone]) to discuss home health concerns and discharge planning. Left Case Management number for return call. Spoke with Pt's son, Edi. Pt had actually lived at rehab facility/shelter in [place]. She didn't live with his sister. He states the family had a lot of concerns when she return home. He states he is not sure who the actual POA is his mother. He states that the will talk to his brother, Maximino and his sister, Radha and inform them of Case Management concerns. Received call from Radha. Advised of home health's concerns about Pt returning home. She states that she is not Pt's POA. She states her daughter, Ginny is her medical POA. She states she lives in [place] and was getting a different story from her mother. Discussed the concerns home health's concerns. She is going to talk to her brothers. She states that her brother Maximino lives the closes and his number is [phone]. Pt will need PT/OT ordered to assist with d/c planning. Case Management will follow. Addendum: 03/09/17 at 1421 by Ana Wan Benjamin SERV Left message for Olive Jordan at the [facility] to determine when services are exactly supposed to start and to discuss concerns. Addendum: 03/09/17 at 1429 by Ana MCDOWELL Spoke with Olive Devine at the [facility]. She confirmed that Pt will not have services start next week. She states absolute best case scenario, services will start in 4-6 weeks but it could be longer. Advised of home health concerns. She also recommended PT/OT evals as Pt would need to be independent and safe with transfers to wheelchair prior to discharge in order to return to her apartment. that is a criteria of living in [place]. MD is aware of need for PT/OT evals. Case Management will follow.
--- NOTE | 2017-03-09 13:30 | NUR ---
CWOCN NOTE CONSULT RECEIVED FOR PT KNOWN TO THE WOUND CLINIC . CURRENT ORDERS REVIEWED. ON ASSESSMENT, THE WOUNDS ARE STABLE FROM LAST VISIT AT THE CLINIC WITH THIS NURSE. PLEASE SEE EMR FOR MEASUREMENTS. ALL BLE AND RIGHT FOOT WOUNDS DRESSED WITH AQUACEL AG. FOOT WOUNDS DRESSED WITH 4X4 AND KERLIX TO MANAGE DRAINAGE AND STAY IN PLACE. THE OPEN DRAINING AREAS ON THE LEGS ARE TO BE COVERED WITH OPTIFOAM OVER THE AQUACEL AG. WITH INTERVENTIONAL CARDIOLOGY HAS BEEN CONSULTED. HE IS KNOWN TO THE PT FROM THE WOUND CLINIC VISITS. PT HAS AN OPEN AREA ON HER LEFT BUTTOCK THAT PT STATES SHE HAS HAD FOR "A WHILE." THE APPEARANCE IS CONSISTENT WITH THE APPEARANCE OF MOISTURE BREAKDOWN. THIS AREA WAS TREATED WITH STOMA POWDER AND BARRIER CREAM, TO BE APPLIED DAILY AND PRN.. PT ON ACCUMAX MATTRESS, HEEL FOAM AND SACRAL BORDER IN PLACE, SKIN IN THESE AREAS INTACT. WAFFLE BOOTS TO BE ORDERED.
--- NOTE | 2017-03-09 14:41 | Progress Note ---
Medicine Progress Note Date & Time of Visit: Mar 09, 2017 at 13:58. Subjective Pt was seen and examined Lying in bed with no distress Pt said that she feels fine She said that she is hungry because she has been NPO for the EGD She said that since she had her bad diarrhea yesterday she has not had any diarrhea She said that she usually constipates she said that her dark stool is due to the iron supplement Denies any chest pain, palpitation, dizziness, sob, nausea and vomiting Objective Last 8 Hrs Date Time Temp Pulse Resp B/P (MAP) Pulse Ox O2 Delivery O2 Flow Rate FiO2 03/09/17 08:40 76 100/64 (76) 03/09/17 07:40 Room Air 03/09/17 07:04 36.8 85 18 105/55 (72) 99 Room Air Physical Exam: General- No acute distress Head- atraumatic Eyes- PERRL, EOMI ENT- oropharynx clear Neck- supple, no JVD Lungs- clear to auscultation Heart- irregular rhythm Abdomen- normal bowel sounds, soft Extremities-no calf tenderness Neuro- alert, oriented x 3; PERRL, EOMI Skin- warm & dry Laboratory Results: Last 24 Hours Test 03/08/17 14:53 03/08/17 16:21 03/08/17 17:54 03/08/17 19:10 Bedside Glucose 80 mg/dl Potassium Level 4.7 mmol/L Iron Level 48 mcg/dl Total Iron Binding Capacity 192 mcg/dl Transferrin 162 mg/dl Transferrin % Saturation 21 % Ferritin 47.4 ng/ml Vitamin B12 Level 731 pg/mL Folate 10.24 ng/mL Test 03/09/17 09:51 White Blood Count 5.40 K/uL Red Blood Count 2.99 M/uL Hemoglobin 9.0 g/dL Hematocrit 28.0 % Mean Corpuscular Volume 93.6 fL Mean Corpuscular Hemoglobin 30.1 pg Mean Corpuscular Hemoglobin Concent 32.1 g/dl RDW Standard Deviation 56.0 fL RDW Coefficient of Variation 16.3 % Platelet Count 220 K/uL Mean Platelet Volume 8.7 fL Sodium Level 137 mmol/L Potassium Level 4.4 mmol/L Chloride Level 112 mmol/L Carbon Dioxide Level 21 mmol/L Anion Gap 4.0 mmol/L Blood Urea Nitrogen 37 mg/dl Creatinine 1.45 mg/dl Est Creatinine Clear Calc Drug Dose 25.8 ml/min Estimated GFR () 36.9 Estimated GFR (Non- 31.8 BUN/Creatinine Ratio 25.6 Random Glucose 88 mg/dl Calcium Level 7.7 mg/dl Date/Time Source Procedure Growth Status 03/08/17 16:31 Blood Blood Culture Pending Received 03/08/17 16:16 Blood Blood Culture Pending Received 03/08/17 20:20 Ulcer Foot Right Gram Stain - Final Resulted 03/08/17 20:20 Ulcer Foot Right Wound Culture Pending Resulted Assessment & Plan ANEMIA Has been having dark stool Pt said that it is due to her iron supplement Found to have low hgb (9.9) on outpatient blood work Also on anticoagulant with Xarelto Hgb on admission 9.5 Hg 9 today hold xarelto Gastro on board Plan to get EGD today Keep NPO for now WILLIAN Creatine on admission 1.8 Possible related to poor oral intake, diarrhea in combination with Bactrim Bactrim was d/c Creatine improved to 1.45 Continue holding Losartan/furosemide Avoid nephrotoxic agents continue monitor BMP NON HEALING RIGHT FOOT ULCERS, PADr Culture from 02/19/17 growing MRSA and was started on Bactrim Foot XR concerning for possible osteomyelitis Will get an MRI with contrast tomorrow if creatine continue to improve Continue IV Vanco and Zosyn Wound cx pending Continue daily wound care Wound care on board UTI Urine cx grew ecoli afebrile and no leukocytosis Already on Zosyn CHRONIC ATRIAL FIBRILLATION Rate controlled on metoprolol Xarelto on hold due to dark stool HX PE On Xarelto that has been held Stable HTN BP stable continue metoprolol continue holding lasix and losartan due to WILLIAN DVT PROPHYLAXIS SCDs due to anemia, possible GI bleed CODE STATUS FULL NO MECH VENTILATION DISPOSITION Will need placement once medially stable to discharge Consultants: Cardio Wound care Current Inpatient Medications: Current Inpatient Medications Medications (Trade) Dose Ordered Sig/Everardo Route Start Time Stop Time Status Last Admin Dose Admin Acetaminophen (Tylenol Tab) 650 mg Q4H PRN PO 03/08/17 12:45 04/07/17 12:44 Ondansetron HCl (Zofran Inj) 4 mg Q6H PRN IV 03/08/17 12:45 04/07/17 12:44 Sodium Chloride 1,000 ml @ 100 mls/hr Q10H IV 12/7/17 15:45 04/07/17 15:44 03/09/17 13:06 100 MLS/HR Cholecalciferol (Vitamin D Tab) 1,000 inter.unit DAILY PO 03/09/17 09:00 04/08/17 08:59 03/09/17 08:44 1,000 INTER.UNIT Citalopram Hydrobromide (celeXA TAB) 20 mg QAM PO 03/09/17 09:00 04/08/17 08:59 03/09/17 08:44 20 MG Lorazepam (Ativan Tab) 0.5 mg TID PRN PO 03/08/17 13:45 04/07/17 13:44 03/09/17 09:01 0.5 MG Metoprolol Succinate (Toprol Xl Tab) 50 mg QAM PO 03/09/17 09:00 04/08/17 08:59 03/09/17 08:45 50 MG Senna/Docusate Sodium (Senokot S Tab) 1 tab DAILY PRN PO 03/08/17 13:45 04/07/17 13:44 Vancomycin HCl (Consult) 1 ea UD PRN N/A 03/08/17 14:15 04/07/17 14:14 Piperacillin Sod/ Tazobactam Sod (Consult) 1 ea UD PRN N/A 03/08/17 14:30 04/07/17 14:29 Piperacillin Sod/ Tazobactam Sod 3.375 gm/Dextrose 115 ml @ 28.75 mls/ hr Q8H IV 03/08/17 23:00 03/18/17 22:59 03/09/17 06:01 28.75 MLS/HR Pantoprazole Sodium 40 mg/ Dextrose 100 ml @ 20 mls/hr Q5H IV 03/08/17 17:45 04/07/17 17:44 03/09/17 13:06 20 MLS/HR Vancomycin HCl 1250 mg/Sodium Chloride 275 ml @ 125 mls/hr Q36H IV 03/10/17 04:00 03/18/17 16:59
[2017-03-09] MEDS ORDERED: MIDAZOLAM HCL 1 MG/ML 2ML VIAL ONE (15:00)
[2017-03-09] MEDS ORDERED: LIDOCAINE HCL 2% 2 ML VIAL (20MG/ML) ONE (15:01)
[2017-03-09] MEDS ORDERED: PROPOFOL IV EMULSION 10 MG/ML 20 ML VIAL IV ONE (15:01)
[2017-03-09] MEDS ORDERED: ONDANSETRON INJ 2 MG/ML 2 ML VIAL ONE (15:01)
--- NOTE | 2017-03-09 15:33 | GI REPORT ---
Procedure Date: 03/09/2017 3:07 PM Procedure: Upper GI endoscopy Indications: Melena Medicines: Monitored Anesthesia Care Complications: No immediate complications. Estimated blood loss: Minimal. Estimated Blood Loss: Estimated blood loss was minimal. Procedure: Pre-Anesthesia Assessment: - Prior to the procedure, a History and Physical was performed, and patient medications, allergies and sensitivities were reviewed. The patient's tolerance of previous anesthesia was reviewed. - The risks and benefits of the procedure and the sedation options and risks were discussed with the patient. All questions were answered and informed consent was obtained. - Patient identification and proposed procedure were verified prior to the procedure by the physician, the nurse and the grocery clerk. The procedure was verified in the procedure room. - Pre-procedure physical examination revealed no contraindications to sedation. - ASA Grade Assessment: III - A patient with severe systemic disease. - After reviewing the risks and benefits, the patient was deemed in satisfactory condition to undergo the procedure. - The anesthesia plan was to use monitored anesthesia care (MAC). - Immediately prior to administration of medications, the patient was re-assessed for adequacy to receive sedatives. - The heart rate, respiratory rate, oxygen saturations, blood pressure, adequacy of pulmonary ventilation, and response to care were monitored throughout the procedure. - The physical status of the patient was re-assessed after the procedure. After obtaining informed consent, the endoscope was passed under direct vision. Throughout the procedure, the patient's blood pressure, pulse, and oxygen saturations were monitored continuously. The Scope was introduced through the mouth, and advanced to the third part of duodenum. The upper GI endoscopy was accomplished without difficulty. The patient tolerated the procedure well. Findings: A moderate Schatzki ring (acquired) was found at the gastroesophageal junction. A medium-sized hiatus hernia was found. The proximal extent of the gastric folds (end of tubular esophagus) was 33 cm from the incisors. The hiatal narrowing was 38 cm from the incisors. The Z-line was 33 cm from the incisors. Diffuse moderate inflammation characterized by congestion (edema), erythema and granularity was found in the entire examined stomach. Biopsies were taken with a cold forceps for histology. Estimated blood loss was minimal. One non-obstructing oozing cratered duodenal ulcer was found in the duodenal bulb. The lesion was 15 mm in largest dimension. Area was successfully injected with 3 mL of a 1:10,000 solution of epinephrine for hemostasis. Coagulation for hemostasis using multipolar probe 7 Fr was successful. The 2nd part of the duodenum and 3rd part of the duodenum were normal. Impression: - Moderate Schatzki ring. - Medium-sized hiatus hernia. - Chronic gastritis. Biopsied. - One non-obstructing oozing duodenal ulcer. Injected. Treated with multipolar cautery. - Normal 2nd part of the duodenum and 3rd part of the duodenum. Recommendation: - [facility]. - Full liquid diet today. - Give Protonix (pantoprazole): 8 mg/hr IV by continuous infusion for 3 days. Then Protonix or equivalent 40 mg twice daily for 6 weeks then 1 time daily. - Repeat the upper endoscopy in 3 months for surveillance. Christine Rivera D.O. Christine Rivera, 03/09/2017 3:32:43 PM This report has been signed electronically. Note Initiated On: 03/09/2017 3:07 PM I attest to the content of the Intraoperative Record and orders documented therein, exceptions below
--- NOTE | 2017-03-09 15:34 | Progress Note ---
Progress Note Date of Service Mar 09, 2017. Progress Note She was found to have a large duodenal ulcer with some oozing around the periferal parts. This was treated with injection and thermal therapy. Recomendations: Full liquid diet today then advance as tolerated Protonix drip for another 48 hours Upon discharge give Protonix 40 mg daily for 6 weeks then 1 time daily thereafter Avoid use of nonsteroidals a possible Please call with any questions or concerns over the weekend, coverage to resume on Sunday Repeat upper endoscopy in 3 months
--- NOTE | 2017-03-09 15:58 | Anesthesiology Progress Note ---
Anesthesia Post Op Note Date & Time Mar 09, 2017 at 15:57 Vital Signs Pain Intensity: 0.0 Vital Signs Past 12 Hours Date Time Temp Pulse Resp B/P (MAP) Pulse Ox O2 Delivery O2 Flow Rate FiO2 03/09/17 15:45 83 18 117/54 (75) 100 Room Air 03/09/17 15:30 97 16 129/68 (88) 100 Room Air 03/09/17 14:27 36.4 94 16 108/64 (79) 100 Room Air 03/09/17 08:40 76 100/64 (76) 03/09/17 07:40 Room Air 03/09/17 07:04 36.8 85 18 105/55 (72) 99 Room Air Notes Mental Status: alert / awake / arousable, participated in evaluation Pt Amnestic to Procedure: Yes Nausea / Vomiting: adequately controlled Pain: adequately controlled Airway Patency, RR, SpO2: stable & adequate BP & HR: stable & adequate Hydration State: stable & adequate Anesthetic Complications: no major complications apparent
[2017-03-09 16:19] VITALS: BP 117/71; PULSE 94; TEMP 36.4; O2SAT 100
--- NOTE | 2017-03-09 16:30 | NUR ---
A: Patient is refusing to wear waffle boots, SCDs on, heels elevated on pillow.
--- NOTE | 2017-03-09 21:07 | CARDIOLOGY CONSULTATION ---
DATE OF CONSULTATION: 03/09/2017 REASON FOR CONSULTATION: Lower extremity wound/peripheral arterial disease. CONSULTATION REQUESTED BY: Love Chanlder MD HISTORY OF PRESENT ILLNESS: Mrs. De La Vega s a pleasant 89-year-old woman with a complex past medical history, known to me from previous visit at the wound center, who was recently admitted in the setting of questionable GI bleed. Cardiology consulted today in regards to her peripheral arterial disease and nonhealing lower extremity ulceration. The patient is a somewhat difficult historian, but she has been known to have longstanding wounds for months. She has been followed by the wound clinic since January 2017. As part of her initial workup, she had a lower extremity arterial duplex which showed moderate arterial insufficiency by MARIBETH 0.59 and a suspected right distal SFA occlusion. MARIBETH on the left was normal. The patient was seen by me 1 week ago, at which time we discussed possible to endovascular intervention and she stated that she wished further to think about the procedure and would get back to us. Since that time, she was found to have new anemia with a hemoglobin down to 9 and she was started on iron supplementation. She has also been on Bactrim for her lower extremity wounds. She endorsed new diarrhea with dark stools and was admitted yesterday. Due to symptoms, she underwent upper endoscopy today and was found to have a large oozing duodenal ulcer which was injected for hemostasis. From her wounds, there was concern for superimposed infection and she was started on broad spectrum antibiotics. She has also received IV fluids with improvement and acute kidney injury from a creatinine of 1.8, down to 1.4. PAST MEDICAL HISTORY: Permanent atrial fibrillation, on Xarelto; hypertension; GERD/prior esophageal stricture; prior DVT/PE; history of degenerative disc disease, status post multiple prior back surgeries and is nonambulatory due to lower extremity weakness; osteoarthritis. FAMILY HISTORY: Noncontributory due to patient's age. SOCIAL HISTORY: Lifelong nonsmoker. At present she lives alone. ALLERGIES: ALLERGIC TO CELEBREX. HOME MEDICATIONS: Include acetaminophen, cholecalciferol, citalopram, diclofenac, losartan 50, Toprol-XL 50, Xarelto 15 mg p.m., Bactrim, and tinactin. Also to taking Lasix 20 mg p.r.n. for edema. REVIEW OF SYSTEMS: Ten point review of systems was completed and otherwise negative other than stated in the HPI. PHYSICAL EXAMINATION: VITAL SIGNS: Temperature 36.4, pulse 94, blood pressure 117/71, satting 100% on room air. GENERAL: The patient appears comfortable, in no acute distress. HEENT: Sclerae are anicteric. Oropharynx is clear. Her mucous membranes are moist. NECK: Supple with no lymphadenopathy. LUNGS: Clear to auscultation bilaterally. CARDIAC: She is irregularly irregular with no appreciable murmurs, rubs or gallops. ABDOMEN: Soft, nontender, nondistended with positive bowel sounds. Her right lower extremity is wrapped. Underneath the wrapping, there is again a large 4.5 x 3.5 x 0.5 cm wound on the dorsal lateral aspect of her foot with minimal surrounding periwound erythema. There is also dressings over her heel and lower leg just above the ankle. She has nonpalpable pulses on the right with good capillary refill. LABORATORY DATA: Sodium 137, potassium 4.4, BUN 37, creatinine 1.45. Hemoglobin of 9, platelets of 220. Gram stain wound is growing corynebacterium. Blood cultures are pending. Foot x-ray did not show any clear evidence of osteomyelitis. Prior vascular imaging as discussed above. IMPRESSION AND PLAN: 1. Right lower extremity ulcerations. 2. Peripheral arterial disease. 3. Recent gastrointestinal bleed in the setting of duodenal ulcer. 4. Acute kidney injury. 5. Suspected cellulitis. 6. Atrial fibrillation, on Xarelto. 7. Nonambulatory status following multiple prior back surgeries. Mrs. De La Vega has persistent nonhealing right lower extremity ulcerations in the setting of peripheral arterial disease with suspected right SFA occlusion. In that setting feel there is benefit to undertaking possible endovascular intervention of SFA occlusion for wound healing. Discussed risks, benefits and alternatives of the procedure with patient. At this point, she is still reluctant to undergo. She states again that she will think about the procedure. For now, no indication for urgent intervention. I have discussed the case with Dr. Chandler, at this time plan is for additional monitoring over the weekend. If patient is still here on Sunday, procedure could be potentially done on Sunday. In that setting, we would recommend holding her Xarelto starting Sunday morning. If patient declines, can be considered again as an outpatient. Thank you for allowing us to participate in the care of this patient. Please contact with any questions. ANABELLE
[2017-03-09 22:56] VITALS: BP 124/88; PULSE 88; TEMP 36.6; O2SAT 99
[2017-03-10] VITALS (12 sets, daily range): BP systolic 92–122; BP diastolic 53–73; PULSE 56–74; TEMP 36.3–36.9; O2SAT 95–100
[2017-03-10] MEDS: PANTOprazole INJ 40 MG in DEXTROSE 5% 100ML IV SCH ×5 (03:07→23:32)
[2017-03-10] MEDS: VANCOMYCIN IV 1,250 MG in SODIUM CHLORIDE 0.9% 250ML 250 ML IV SCH (04:27)
--- NOTE | 2017-03-10 04:38 | NUR ---
ID: Pt A&O x4. VSS. Not OOB, Q2hr turn/repositioning. Voiding on bedpan. IVF infusing per MD order, IV protonix, & intermittent ABX infusing through 2 IV sites. Both sites were replaced during this shift due to infiltration. Patient denies pain. Optifoam dressings intact. Allyven x3 intact. Pt refusing waffle boots, heels elevated with pillows. RED socks. Tolerating full liquid diet. Discharge plans uncertain at this time, case management to follow.
[2017-03-10] MEDS: PIPERACILL/TAZOBAC IV 3.375 GM in DEXTROSE 5% 100ML IV SCH ×3 (06:58→22:30)
[2017-03-10] MEDS: SODIUM CHLORIDE 0.9% 1000ML 1,000 ML IV SCH ×2 (08:08→17:09)
[2017-03-10 08:35] LABS: HEMATOCRIT 25.4 % (37-47); HEMOGLOBIN 7.6 g/dL (12.0-16.0); MEAN CELL VOLUME 95.1 fL (80-100); MEAN CORPUSCULAR HEMOGLOBIN 28.5 pg (25-34); MEAN CORPUSCULAR HGB CONC 29.9 g/dl (32-36); MEAN PLATELET VOLUME 8.3 fL (7.4-10.4); PLATELET COUNT 156 K/uL (130-400); RED CELL DISTRIBUTION WIDTH CV 16.3 % (11.5-14.5); RED CELL DISTRIBUTION WIDTH SD 56.6 fL (36.4-46.3); WHITE BLOOD COUNT 3.68 K/uL (4.8-10.8)
[2017-03-10] MEDS: METOPROLOL SUCC 50MG EXT REL TAB PO SCH ×2 (09:00→09:16)
[2017-03-10 09:01] LABS: CALCIUM 7.5 mg/dl (8.5-10.1); CREATININE 1.3 mg/dl (0.60-1.20)
[2017-03-10] MEDS: CHOLECALCIFEROL 1000 INTER.UNIT TAB PO SCH (09:15)
[2017-03-10] MEDS: CITALOPRAM 20 MG TAB PO SCH (09:16)
[2017-03-10] MEDS: LORAZEPAM 0.5 MG TAB PO PRN ×2 (09:19→19:34)
[2017-03-10] MEDS ORDERED: VANCOMYCIN IV 1,250 MG in SODIUM CHLORIDE 0.9% 250ML 250 ML IV SCH (17:00)
[2017-03-10] MEDS: ACETAMINOPHEN 325 MG TAB PO PRN (19:35)
--- NOTE | 2017-03-10 19:55 | Progress Note ---
Medicine Progress Note Date & Time of Visit: Mar 10, 2017 at 10:28. Subjective Pt was seen and examined Lying in bed with no distress Very pleasant and wonders when she will go home Pt refused to go to rehab or go for placement She said that her boyfriend lives in the apartment Pt said that if she places to a alf or to to she rehab that she would not last longer to live She will feel lonely because she will be away from her lover, friends and family member She denies any chest pain, palpitation, dizziness and SOB Objective Last 8 Hrs Date Time Temp Pulse Resp B/P (MAP) Pulse Ox O2 Delivery O2 Flow Rate FiO2 03/10/17 15:00 36.6 68 18 96/62 (73) 98 Room Air 03/10/17 14:00 36.9 65 16 93/54 100 03/10/17 13:34 36.6 74 16 92/53 100 03/10/17 12:30 36.7 66 16 112/68 95 03/10/17 12:01 36.6 68 16 113/66 95 03/10/17 11:30 36.8 56 16 122/65 99 Physical Exam: General- No acute distress Head- atraumatic Eyes- PERRL, EOMI ENT- oropharynx clear Neck- supple, no JVD Lungs- clear to auscultation Heart- irregular rhythm Abdomen- normal bowel sounds, soft Extremities-no calf tenderness Neuro- alert, oriented x 3; PERRL, EOMI Skin- warm & dry Laboratory Results: Last 24 Hours Test 03/10/17 08:26 White Blood Count 3.68 K/uL Red Blood Count 2.67 M/uL Hemoglobin 7.6 g/dL Hematocrit 25.4 % Mean Corpuscular Volume 95.1 fL Mean Corpuscular Hemoglobin 28.5 pg Mean Corpuscular Hemoglobin Concent 29.9 g/dl RDW Standard Deviation 56.6 fL RDW Coefficient of Variation 16.3 % Platelet Count 156 K/uL Mean Platelet Volume 8.3 fL Sodium Level 138 mmol/L Potassium Level 4.0 mmol/L Chloride Level 110 mmol/L Carbon Dioxide Level 19 mmol/L Anion Gap 9.0 mmol/L Blood Urea Nitrogen 23 mg/dl Creatinine 1.30 mg/dl Est Creatinine Clear Calc Drug Dose 28.8 ml/min Estimated GFR () 42.1 Estimated GFR (Non- 36.3 BUN/Creatinine Ratio 17.3 Random Glucose 177 mg/dl Calcium Level 7.5 mg/dl Assessment & Plan ANEMIA Has been having dark stool Pt said that it is due to her iron supplement Found to have low hgb (9.9) on outpatient blood work Also on anticoagulant with Xarelto Hgb on admission 9.5 12/9 Hg dropped to 7.6 today Typed and cross and transfused 1 units PRBC Continue holding Xarelto Monitor h/h Gastro on board S/P EGD yesterday showed 15mm oozing duodenal ulcer DUODENAL ULCER S/P EGD done by Gastro dr. Rivera showed a non-obstructing oozing duodenal ulcer Gastro recommended to continue Protonix drip until Sunday Then changing to 40mg BID for 6 weeks, then continue Protonix 40mg daily Will need a repeat EGD in 3 months for surveillance Continue holding Xarelto, consider to restart on Sunday if h/h stable Avoid NSAIDs Continue monitor H/H WILLIAN Creatine on admission 1.8 Possible related to poor oral intake, diarrhea in combination with Bactrim Bactrim was d/c Creatine improved to 1.3 Will resume Losartan/furosemide Avoid nephrotoxic agents continue monitor BMP NON HEALING RIGHT FOOT ULCERS, PADr Culture from 02/19/17 growing MRSA and was started on Bactrim Foot XR concerning for possible osteomyelitis Will get an MRI with contrast tomorrow if creatine continue to improve Continue IV Vanco and Zosyn Wound cx grew corynebacterium Continue daily wound care Wound care on board PERIPHERAL ARTERY DISEASE Possible SFA occlusion Case discussed with intervention Cardiology Dr. Mercer Recommended for possible endovascular intervention of SFA occlusion for wound healing Pt has not decided yet Can schedule for Sunday if pt agrees to proceed with the procedure Will continue to hold Xarelto UTI Urine cx grew ecoli afebrile and no leukocytosis Already on Zosyn CHRONIC ATRIAL FIBRILLATION Rate controlled on metoprolol Xarelto on hold due to dark stool and duodenal ulcer on EGD HX PE On Xarelto that has been held Stable HTN BP in the low side continue metoprolol continue to hold lasix and losartan DVT PROPHYLAXIS SCDs due to anemia and duodenal ulcer CODE STATUS FULL NO MECH VENTILATION DISPOSITION Will need placement once medially stable to discharge refused to go to rehab or SNF Consultants: Cardio Wound care Procedures: EGD Current Inpatient Medications: Current Inpatient Medications Medications (Trade) Dose Ordered Sig/Everardo Route Start Time Stop Time Status Last Admin Dose Admin Acetaminophen (Tylenol Tab) 650 mg Q4H PRN PO 03/08/17 12:45 04/07/17 12:44 Ondansetron HCl (Zofran Inj) 4 mg Q6H PRN IV 03/08/17 12:45 04/07/17 12:44 Sodium Chloride 1,000 ml @ 100 mls/hr Q10H IV 03/08/17 15:45 04/07/17 15:44 03/10/17 17:09 100 MLS/HR Cholecalciferol (Vitamin D Tab) 1,000 inter.unit DAILY PO 03/09/17 09:00 04/08/17 08:59 03/10/17 09:15 1,000 INTER.UNIT Citalopram Hydrobromide (celeXA TAB) 20 mg QAM PO 03/09/17 09:00 04/08/17 08:59 03/10/17 09:16 20 MG Lorazepam (Ativan Tab) 0.5 mg TID PRN PO 03/08/17 13:45 04/07/17 13:44 03/10/17 09:19 0.5 MG Metoprolol Succinate (Toprol Xl Tab) 50 mg QAM PO 03/09/17 09:00 04/08/17 08:59 03/09/17 08:45 50 MG Senna/Docusate Sodium (Senokot S Tab) 1 tab DAILY PRN PO 03/08/17 13:45 04/07/17 13:44 Vancomycin HCl (Consult) 1 ea UD PRN N/A 03/08/17 14:15 04/07/17 14:14 Piperacillin Sod/ Tazobactam Sod (Consult) 1 ea UD PRN N/A 03/08/17 14:30 04/07/17 14:29 Piperacillin Sod/ Tazobactam Sod 3.375 gm/Dextrose 115 ml @ 28.75 mls/ hr Q8H IV 03/08/17 23:00 03/18/17 22:59 03/10/17 14:42 28.75 MLS/HR Pantoprazole Sodium 40 mg/ Dextrose 100 ml @ 20 mls/hr Q5H IV 03/08/17 17:45 04/07/17 17:44 03/10/17 18:05 20 MLS/HR Vancomycin HCl 1250 mg/Sodium Chloride 275 ml @ 125 mls/hr Q36H IV 03/10/17 04:00 03/18/17 16:59 03/10/17 04:27 125 MLS/HR
[2017-03-10 20:28] LABS: HEMATOCRIT 27.5 % (37-47); HEMOGLOBIN 8.4 g/dL (12.0-16.0)
[2017-03-11] MEDS: PANTOprazole INJ 40 MG in DEXTROSE 5% 100ML IV SCH ×3 (04:35→18:07)
[2017-03-11] MEDS: PIPERACILL/TAZOBAC IV 3.375 GM in DEXTROSE 5% 100ML IV SCH ×3 (06:01→22:36)
--- NOTE | 2017-03-11 06:34 | NUR ---
ID: Pt oriented to self, place and time, reminded of plan of care and skin injuries several times, pt continues to refuse turning throughout much of shift. Pt on RA, protonix drip infusing throughout shift. Pt has several optifoams, new skin breakdown on heels. Pt using bedpan to void, has not moved bowels this shift. Call padilla in reach. Plan for discharge uncertain at this time.
[2017-03-11 06:42] LABS: CREATININE 1.19 mg/dl (0.60-1.20)
[2017-03-11 07:21] VITALS: BP 127/62; PULSE 70; TEMP 36.6; O2SAT 94
[2017-03-11 08:35] LABS: HEMOGLOBIN 9.1 g/dL (12.0-16.0); MEAN CELL VOLUME 94.2 fL (80-100); MEAN CORPUSCULAR HEMOGLOBIN 29.5 pg (25-34); MEAN CORPUSCULAR HGB CONC 31.4 g/dl (32-36); MEAN PLATELET VOLUME 8.8 fL (7.4-10.4); PLATELET COUNT 178 K/uL (130-400); RED CELL DISTRIBUTION WIDTH CV 16.2 % (11.5-14.5); RED CELL DISTRIBUTION WIDTH SD 55.5 fL (36.4-46.3); WHITE BLOOD COUNT 3.58 K/uL (4.8-10.8)
--- NOTE | 2017-03-11 09:16 | Pharmacy Progress Note ---
Pharmacy Abx Dose Progress Nt Date of Service Mar 11, 2017. Pharmacy Dosing Scope The patient is currently receiving the following antimicrobial agents per Pharmacy consult: Vancomycin 1,250 mg IV every 36 hours Objective Height (Feet): 5 Height (Inches): 4.00 Weight (Kilograms): 73.200 Vital Signs (Past 12Hrs) Vital Signs Past 12 Hours Date Time Temp Pulse Resp B/P (MAP) Pulse Ox O2 Delivery O2 Flow Rate FiO2 03/11/17 08:00 Room Air 03/11/17 07:21 36.6 70 16 127/62 (83) 94 Room Air 03/10/17 23:45 Room Air 03/10/17 22:53 36.8 71 16 112/69 (83) 97 Room Air Lab Results (24Hrs) Item Value Date Time Creatinine 1.45 mg/dl H # 03/09/17 0951 Est Creatinine Clear Calc Drug Dose 25.8 ml/min 03/09/17 0951 Creatinine 1.30 mg/dl H 03/10/17 0826 Est Creatinine Clear Calc Drug Dose 28.8 ml/min 03/10/17 0826 Creatinine 1.19 mg/dl 03/11/17 0543 Est Creatinine Clear Calc Drug Dose 31.4 ml/min 03/11/17 0543 Laboratory Tests (24 Hours) Test 03/11/17 05:43 White Blood Count 3.58 K/uL (4.8-10.8) L Micro Results Date/Time Source Procedure Growth Status 03/08/17 16:31 Blood Blood Culture - Preliminary NO GROWTH TO DATE. Resulted 03/08/17 16:16 Blood Blood Culture - Preliminary NO GROWTH TO DATE. Resulted 03/08/17 10:40 Urine , Clean Catch Urine Culture - Final Escherichia Coli Complete 03/08/17 20:20 Ulcer Foot Right Gram Stain - Final Complete 03/08/17 20:20 Wound Culture - Final Corynebacterium Species Complete Risk Factors for Resistance * History of infection with a multidrug-resistant organism: MRSA wound culture , feb 19, 2017 * Antimicrobial use within the last 90 days Bactrim po Assessment & Plan Assessment 89 year old female receiving Vancomycin for treatment of wound infection and Zosyn for treatment of UTI - E.Colli Day # 4 of antimicrobial therapy NON HEALING RIGHT FOOT ULCERS, PADr Culture from 02/19/17 growing MRSA and was started on Bactrim Foot XR concerning for possible osteomyelitis Will get an MRI with contrast tomorrow if creatine continue to improve Continue IV Vanco and Zosyn Wound cx grew corynebacterium Patient received a loading dose of vancomycin 1750mg (23.9mg/kg) on 03/08/17. Patient had an elevated SCr of 1.81 mg/dl. SCr had been improving over last several days (SCr 1.19 mg/dl 03/11/17). Plan Vancomycin IV * Continue dose of 1250 mg IV every 36 hours * Goal trough level for Wound Infection with possible osteomyelitis : 15 to 20 mcg/mL * Trough or random level ordered for: 03/12/17 @03:30 * Less than traditional dose and/or extended dosing interval selected due to likelihood of drug accumulation in patient/CKD. Piperacillin/tazobactam * Continue 3.375 g IV extended infusion every 8 hours for CrCl greater than 20 mL/min Pharmacy will continue to follow and will adjust dose/frequency as necessary. Thank you.
[2017-03-11] MEDS: METOPROLOL SUCC 50MG EXT REL TAB PO SCH (09:28)
[2017-03-11] MEDS: CHOLECALCIFEROL 1000 INTER.UNIT TAB PO SCH (09:28)
[2017-03-11] MEDS: LORAZEPAM 0.5 MG TAB PO PRN ×3 (09:28→22:51)
[2017-03-11] MEDS: CITALOPRAM 20 MG TAB PO SCH (09:28)
[2017-03-11 15:20] VITALS: BP 113/65; PULSE 70; TEMP 36.5; O2SAT 94
[2017-03-11] MEDS: VANCOMYCIN IV 1,250 MG in SODIUM CHLORIDE 0.9% 250ML 250 ML IV SCH ×2 (16:32→16:59)
--- NOTE | 2017-03-11 16:48 | Progress Note ---
Medicine Progress Note Date & Time of Visit: Mar 11, 2017 at 11:35. Subjective Pt was seen and examined Lying in bed with no distress Pt said that she feels fine Pt said that she has been having a lot of anxiety She said that few months ago she lost her son Pt said that she was taking Ativan 1 mg, but her PCP cut it to 0.5 mg She said that she would like to go back to the 1 mg She said that she has been on the Ativan for 40 yrs Pt said thought about the procedure and she would like to proceed with it while she is in the hospital Denies any chest pain, palpitation, dizziness and sob Objective Last 8 Hrs Date Time Temp Pulse Resp B/P (MAP) Pulse Ox O2 Delivery O2 Flow Rate FiO2 03/11/17 15:20 36.5 70 18 113/65 (81) 94 Room Air Physical Exam: General- No acute distress Head- atraumatic Eyes- PERRL, EOMI ENT- oropharynx clear Neck- supple, no JVD Lungs- clear to auscultation Heart- irregular rhythm Abdomen- normal bowel sounds, soft Extremities-no calf tenderness Neuro- alert, oriented x 3; PERRL, EOMI Skin- warm & dry Laboratory Results: Last 24 Hours Test 03/10/17 20:16 03/11/17 05:43 Hemoglobin 8.4 g/dL 9.1 g/dL Hematocrit 27.5 % 29.0 % White Blood Count 3.58 K/uL Red Blood Count 3.08 M/uL Mean Corpuscular Volume 94.2 fL Mean Corpuscular Hemoglobin 29.5 pg Mean Corpuscular Hemoglobin Concent 31.4 g/dl RDW Standard Deviation 55.5 fL RDW Coefficient of Variation 16.2 % Platelet Count 178 K/uL Mean Platelet Volume 8.8 fL Creatinine 1.19 mg/dl Est Creatinine Clear Calc Drug Dose 31.4 ml/min Estimated GFR () 46.9 Estimated GFR (Non- 40.4 Assessment & Plan ANEMIA Has been having dark stool Pt said that it is due to her iron supplement Found to have low hgb (9.9) on outpatient blood work Also on anticoagulant with Xarelto Hgb on admission 9.5 03/11 Received 1 unit of PRBC yesterday Continue holding Xarelto Monitor h/h Gastro on board S/P EGD yesterday showed 15mm oozing duodenal ulcer DUODENAL ULCER S/P EGD done by Gastro dr. Rivera showed a non-obstructing oozing duodenal ulcer Gastro recommended to continue Protonix drip until Sunday Then changing to 40mg BID for 6 weeks, then continue Protonix 40mg daily Will need a repeat EGD in 3 months for surveillance Continue holding Xarelto, consider to restart on Sunday if h/h stable Avoid NSAIDs Continue monitor H/H WILLIAN Creatine on admission 1.8 Possible related to poor oral intake, diarrhea in combination with Bactrim Bactrim was d/c Creatine improved to 1.19 Losartan/furosemide have been on hold Avoid nephrotoxic agents continue monitor BMP Resolved NON HEALING RIGHT FOOT ULCERS, PADr Culture from 02/19/17 growing MRSA and was started on Bactrim Foot XR concerning for possible osteomyelitis Order MRI with contrast to r/o osteomyelitis Continue IV Vanco and Zosyn Wound cx grew corynebacterium Continue daily wound care Wound care on board PERIPHERAL ARTERY DISEASE Possible SFA occlusion Case discussed with intervention Cardiology Dr. Mercer Recommended for possible endovascular intervention of SFA occlusion for wound healing Patient would like to proceed with the procedure while in the hospital Will schedule for Sunday for the procedure Will continue to hold Xarelto Will made NPO on Sunday after midnight for the surgery UTI Urine cx grew ecoli afebrile and no leukocytosis Already on Zosyn Stable CHRONIC ATRIAL FIBRILLATION Rate controlled on metoprolol Xarelto on hold due to dark stool and duodenal ulcer on EGD HX PE On Xarelto that has been held Stable HTN BP in the low side continue metoprolol continue to hold lasix and losartan DVT PROPHYLAXIS SCDs due to anemia and duodenal ulcer CODE STATUS FULL NO MECH VENTILATION DISPOSITION Will need placement once medially stable to discharge Refused to go to rehab or SNF Consultants: Cardio Wound care Procedures: EGD Current Inpatient Medications: Current Inpatient Medications Medications (Trade) Dose Ordered Sig/Everardo Route Start Time Stop Time Status Last Admin Dose Admin Acetaminophen (Tylenol Tab) 650 mg Q4H PRN PO 03/08/17 12:45 04/07/17 12:44 03/10/17 19:35 650 MG Ondansetron HCl (Zofran Inj) 4 mg Q6H PRN IV 03/08/17 12:45 04/07/17 12:44 Cholecalciferol (Vitamin D Tab) 1,000 inter.unit DAILY PO 03/09/17 09:00 04/08/17 08:59 03/11/17 09:28 1,000 INTER.UNIT Citalopram Hydrobromide (celeXA TAB) 20 mg QAM PO 03/09/17 09:00 04/08/17 08:59 03/11/17 09:28 20 MG Lorazepam (Ativan Tab) 0.5 mg TID PRN PO 03/08/17 13:45 04/07/17 13:44 03/11/17 09:28 0.5 MG Metoprolol Succinate (Toprol Xl Tab) 50 mg QAM PO 03/09/17 09:00 04/08/17 08:59 03/11/17 09:28 50 MG Senna/Docusate Sodium (Senokot S Tab) 1 tab DAILY PRN PO 03/08/17 13:45 04/07/17 13:44 Vancomycin HCl (Consult) 1 ea UD PRN N/A 03/08/17 14:15 04/07/17 14:14 Piperacillin Sod/ Tazobactam Sod (Consult) 1 ea UD PRN N/A 03/08/17 14:30 04/07/17 14:29 Piperacillin Sod/ Tazobactam Sod 3.375 gm/Dextrose 115 ml @ 28.75 mls/ hr Q8H IV 03/08/17 23:00 03/18/17 22:59 03/11/17 14:40 28.75 MLS/HR Pantoprazole Sodium 40 mg/ Dextrose 100 ml @ 20 mls/hr Q5H IV 03/08/17 17:45 04/07/17 17:44 03/11/17 12:27 20 MLS/HR Vancomycin HCl 1250 mg/Sodium Chloride 275 ml @ 125 mls/hr Q36H IV 03/10/17 04:00 03/18/17 16:59 03/11/17 16:32 125 MLS/HR
--- NOTE | 2017-03-11 22:32 | DIAGNOSTIC IMAGING REPORT ---
R LOWER EXT NONJOINT W/O HISTORY: 89 years-old Female R/O osteomyelitis chronic nonhealing wound of the right forefoot with concern for possible osteomyelitis. COMPARISON: Right foot radiographs 03/08/2017 TECHNIQUE: Multiplanar multisequence MRI of the right forefoot is obtained without the use of IV contrast. FINDINGS: The large [id number] yard caller localizer images demonstrate no gross abnormality. There is cortical erosion, bony destruction and periostitis with decreased T1 and increased T2 marrow signal involving the mid and distal portions of the third proximal phalanx nicely seen on image 12 series 4, image 25 series 7 and 8 with adjacent subcutaneous edema and probable skin ulcer. There appears to be destruction of the adjacent PIP joint with cortical irregularity, decreased T1 and increased T2 signal noted involving the middle phalanx as seen on image 11 series 4 and image 24 of series 7 and 8. There is only minimal marrow edema of the distal phalanx third digit, likely reactive. The second proximal phalanx appears truncated with tapering of the distal portion of the phalanx at the PIP joint as seen on image 17 series 4, also noted comparison radiographs which may reflect remote surgery or remote trauma. No associated bone marrow edema or evidence of osteomyelitis within the proximal phalanx. There is however moderate bone marrow edema involving the middle and distal phalanges of the second digit as seen on image 16 series 5 with possible adjacent skin ulcer. T1 signal within this distribution is generally preserved. There is multidigit extension of the metatarsophalangeal joints with flexion of the interphalangeal joints. Moderate degenerative changes of the first MTP joint without evidence of first digit osteomyelitis. Multifocal degenerative changes are noted throughout the midfoot. Type II accessory navicular. There is moderate atrophy involving the intrinsic musculature of the foot. Flexor and extensor tendons appear intact. Mild diffuse subcutaneous edema with mild intramuscular edema. No drainable fluid collections. IMPRESSION: 1. Findings compatible with osteomyelitis with cortical destruction involving the mid and distal portions of the third proximal phalanx, third DIP joint and third middle phalanx with possible adjacent skin ulcer. 2. Moderate bone marrow edema with relative preservation of T1 marrow signal involving the middle and distal phalanges of the second digit suggests reactive changes or early acute osteomyelitis. Follow-up recommended. 3. Soft tissue and intramuscular edema throughout the foot suggests cellulitis with myositis. 4. Multifocal degenerative changes as above. The above report was generated using voice recognition software. It may contain grammatical, syntax or spelling errors. Electronically signed by: Alvaro Sanders M.D. 03/11/2017 10:31 PM Dictated Date/Time: 03/11/2017 10:17 PM
[2017-03-11] MEDS: ACETAMINOPHEN 325 MG TAB PO PRN (22:52)
[2017-03-11 23:24] VITALS: BP 99/57; PULSE 58; TEMP 36.6; O2SAT 98
[2017-03-11 23:45] VITALS: BP 105/64
[2017-03-12] VITALS (7 sets, daily range): BP systolic 109–133; BP diastolic 57–77; PULSE 60–81; TEMP 36.5–37; O2SAT 97–99
[2017-03-12] MEDS: PANTOprazole INJ 40 MG in DEXTROSE 5% 100ML IV SCH ×2 (02:21→06:35)
[2017-03-12] MEDS ORDERED: VANCOMYCIN TROUGH ONE (03:30)
[2017-03-12 04:38] LABS: CREATININE 1.09 mg/dl (0.60-1.20)
--- NOTE | 2017-03-12 04:53 | NUR ---
ID: Pt. alert and oriented x 4. VSS. Tolerating AHA diet. Protonix gtt at 20 ml/hr to right posterior forearm vein. SL with intermittent IV Zosyn and Vanco to left wrist vein. Pain managed with medication ordered. Kerlix dressing to right foot intact. Repositions self in bed and with 2 person assist as needed. Discharge plan uncertain at this time, [facility] involved.
[2017-03-12] MEDS: PIPERACILL/TAZOBAC IV 3.375 GM in DEXTROSE 5% 100ML IV SCH (06:26)
[2017-03-12 08:06] LABS: HEMATOCRIT 28.6 % (37-47); HEMOGLOBIN 8.8 g/dL (12.0-16.0); MEAN CELL VOLUME 94.4 fL (80-100); MEAN CORPUSCULAR HGB CONC 30.8 g/dl (32-36); MEAN PLATELET VOLUME 9.1 fL (7.4-10.4); PLATELET COUNT 182 K/uL (130-400); RED CELL DISTRIBUTION WIDTH CV 16.4 % (11.5-14.5); RED CELL DISTRIBUTION WIDTH SD 56.2 fL (36.4-46.3); WHITE BLOOD COUNT 4.39 K/uL (4.8-10.8)
[2017-03-12] MEDS ORDERED: VANCOMYCIN IV 1,500 MG in SODIUM CHLORIDE 0.9% 500ML 500 ML IV SCH (09:00)
--- NOTE | 2017-03-12 09:11 | Pharmacy Progress Note ---
Pharmacy Antibiotic Prog Note Date of Service Mar 12, 2017. Subjective The patient is currently receiving vancomycin 1250 mg IV every 36 hours. The patient is currently on day # 5 of vancomycin IV therapy. Objective Height (Feet): 5 Height (Inches): 4.00 Weight (Kilograms): 73.200 Lab Results (24hrs): Test 03/12/17 03:40 03/12/17 03:48 White Blood Count 4.39 K/uL (4.8-10.8) Red Blood Count 3.03 M/uL (4.2-5.4) Hemoglobin 8.8 g/dL (12.0-16.0) Hematocrit 28.6 % (37-47) Mean Corpuscular Volume 94.4 fL (80-100) Mean Corpuscular Hemoglobin 29.0 pg (25-34) Mean Corpuscular Hemoglobin Concent 30.8 g/dl (32-36) RDW Standard Deviation 56.2 fL (36.4-46.3) RDW Coefficient of Variation 16.4 % (11.5-14.5) Platelet Count 182 K/uL (130-400) Mean Platelet Volume 9.1 fL (7.4-10.4) Creatinine 1.09 mg/dl (0.60-1.20) Est Creatinine Clear Calc Drug Dose 34.3 ml/min Estimated GFR () 52.1 Estimated GFR (Non- 45.0 Vancomycin Level Trough 20.7 mcg/ml (SEE COMMENT) Assessment & Plan Assessment * 89 yo F presented to ED w diarrhea - found to have multiple problems including upper GIB, WILLIAN, ESBL E. coli UTI, osteomyelitis (recent culture wound with MRSA), and SFA occlusion. Surgery for SFA occlusion planned for tomorrow ( Sunday). * Bactrim as outpatient for MRSA in wound culture from 02/19. This admission, MRI indicates may be osteomyelitis. Anticipate need for prolonged outpatient therapy with MRSA coverage. Unfortunately, only oral option (based on sensitivities) is Bactrim, but concern for continuing as outpatient 2nd WILLIAN/ renal function. Therefore may need vancomycin (or daptomycin) as outpatient. Will attempt to schedule vancomycin q24h to facilitate outpatient utilization. * Zosyn switched to ertapenem for ESBL E. coli UTI and continued broad-spectrum coverage for osteomyelitis. * Spoke w Dr. Chandler - plans to consult ID * Renal function improving Vancomycin * Goal vancomycin trough 15-20 mcg/mL - would prefer upper end of therapeutic range for MRSA osteomyelitis * Level of 20.7 mcg/mL this AM is slightly supratherapeutic. However, this was only a 12 hour level (patient currently scheduled for vancomycin q36h). * Q36h interval at current dose will therefore produce levels that are likely to be significantly subtherapeutic * Will attempt to schedule vancomycin at q24h interval to facilitate outpatient utilization (if desired) * Will need to increase dose to 20 mg/kg to maintain trough in therapeutic range * Will obtain level tomorrow to ensure level does not become significantly subtherapeutic Plan * Increase vancomycin 1500 mg IV q24h * Trough / @ 0830 Pharmacy will continue to follow and will adjust dose/frequency as necessary. Thank you
[2017-03-12] MEDS: CHOLECALCIFEROL 1000 INTER.UNIT TAB PO SCH (09:37)
[2017-03-12] MEDS: CITALOPRAM 20 MG TAB PO SCH (09:37)
[2017-03-12] MEDS: METOPROLOL SUCC 50MG EXT REL TAB PO SCH (09:37)
[2017-03-12] MEDS: LORAZEPAM 0.5 MG TAB PO PRN ×2 (10:02→21:22)
--- NOTE | 2017-03-12 10:24 | Progress Note ---
Progress Note Date of Service Mar 12, 2017. Progress Note ID Consult Dictated #[id number] A/P: 1. Osteomyelitis Right 3rd toe -MRSA 2. E. coli uti 3. WILLIAN - likely secondary to bactrim, improving -Continue current abx -Will need 3 days Ertapenem -Continue vanco for now, not a candidate for bactrim due to WILLIAN, would suggest Zyvox but on SSRI, can this be held -Would suggest surgery eval as well -Will follow, thank you
--- NOTE | 2017-03-12 11:16 | INFECT. DISEASE CONSULTATION ---
DATE OF CONSULTATION: 03/11/2017 HISTORY OF PRESENT ILLNESS: This is an 89-year-old female who was admitted to the hospital with reported diarrhea. She also was found to have an elevated creatinine as high as 1.8. Per the H&P, her baseline is 0.9. Per the H&P, she was recently placed on Bactrim secondary to a wound culture that was obtained on the 19 of February from her right foot, growing MRSA. She states that since starting the MRSA, she had worsening GI upset and diarrhea. She was also started on iron therapy as well. Her Bactrim was discontinued upon admission and she was started on intravenous antibiotics. She is currently on ertapenem and vancomycin. Her creatinine has improved to 1.3. She has been afebrile since admission to the hospital. She did have an MRI of the foot yesterday, which showed osteomyelitis of the third toe. She also had a positive urinalysis in the ER with greater than 30 WBCs and 4+ bacteria. Her urine culture is growing E. coli, which is sensitive to Invanz. On my examination, she does not complain of any urinary complaints. She does admit to some drainage from the toe and some pain in the foot, but this has improved. She denies any chest pain, cough, shortness of breath, nausea, vomiting or diarrhea. This seems to have resolved with discontinuation of Bactrim. Her remaining review of systems is unremarkable. PAST MEDICAL HISTORY: Significant for acoustic neuroma, AFib, diskitis, duodenitis, esophageal stricture, hypertension, history of PE, and peripheral vascular disease. PAST SURGICAL HISTORY: Significant for back surgery and esophageal dilation. FAMILY HISTORY: Noncontributory. SOCIAL HISTORY: Negative for tobacco use, alcohol use or drug use. ALLERGIES: SHE HAS ALLERGIES TO CELEBREX. CURRENT MEDICATIONS: Include Protonix, ertapenem, vancomycin, vitamin D, Celexa, Toprol-XL, Ativan, Senokot, Tylenol and Zofran. PHYSICAL EXAMINATION: VITAL SIGNS: She is afebrile, pulse 71, respiratory rate is 18, blood pressure 109/68, and oxygen saturation is 99% on room air. GENERAL: She is awake, alert and oriented x3. She is in no acute distress. HEENT: Mucous membranes are moist. HEART: Regular. LUNGS: Clear bilaterally. ABDOMEN: Soft, nontender, and nondistended. EXTREMITIES: There is no lower extremity edema. Right foot dressing is clean, dry and intact. There is no surrounding erythema, warmth or tenderness on my examination. LABORATORY STUDIES: CBC today reveals a white blood cell count of 4.3, hemoglobin 8.8 and platelets are 182. Chemistry panel on the , sodium is 138, potassium 4.0, chloride 110, bicarbonate 19, BUN 23, and creatinine 1.3, improved from 1.8 on admission. Her creatinine this morning is 1.0. Glucose was 177. LFTs were normal on admission. Again, urinalysis had greater than 30 WBCs, large leukocyte esterase, and +4 bacteria. Her vancomycin trough this morning is 20.7. Superficial wound culture on the grew corynebacterium; however, an outpatient wound culture on the is growing MRSA. Blood cultures from the are no growth to date. Urine culture from the is growing E. coli, which is resistant to ampicillin and sulbactam, cefepime, ceftriaxone, cefuroxime, and ciprofloxacin. There is intermediate sensitivity to Levaquin. Review of outpatient culture from the again MRSA was isolated with resistance to clindamycin and tetracycline. Lower extremity MRI on the again shows findings compatible with osteomyelitis, cortical destruction at the mid and distal portions of the third proximal phalanx of the third DIP joint with adjacent skin ulcer. ASSESSMENT AND PLAN: 1. Osteomyelitis of the right foot with methicillin-resistant Staphylococcus aureus. She will be continued on IV vancomycin at this time. 2. Urinary tract infection. She is on Invanz and can be continued on this for a total of 72 hours. Concerns for her include transition to oral antibiotics if needed. She will not be a candidate for Bactrim secondary to her recent acute kidney injury, which is likely attributed to Bactrim therapy. She does not have additional oral options with the exception of Zyvox; however, she is on an SSRI and this would be a contraindication. I would suggest a surgical evaluation while she is an inpatient to discuss other treatment options that may be available for the treatment of her osteomyelitis. She will remain on her current antibiotics. We will follow along with you. Thank you for this consultation.
--- NOTE | 2017-03-12 11:20 | NUR ---
CWOCN: ASSISTED DR PIERRE WITH CONSULT. OPEN WOUNDS RIGHT 3RD TOE, RIGHT PLANTAR FOOT AND LATERAL ANKLE. ANKLE COVERED WITH OPTIFOAM. TOE AND DORSAL FOOT WOUNDS COVERED WITH AQUACEL AG , 4X4'S AND KERLIX. TO BE CHANGED DAILY AND PRN.
[2017-03-12] MEDS: ERTAPENEM IV 1 GM in SODIUM CHLOR 0.9% AD-VAN 50ML IV SCH (13:25)
--- NOTE | 2017-03-12 14:05 | NUR ---
Reviewed chart. Pt lives at home alone in the [facility] in [place]. (retirement apartment) Pt has to be able to be independent with Transfer to her wheelchair in order to return home. Pt had been active with [facility] but they are currently stating they can not accept Pt in return. Uncertain at this time if Pt will need IV antibiotics at discharge. Pt has a resistant UTI and possible osteomyelitis. Pt is also for a possible vascular procedure tomorrow. 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 Pt is resistant to SNF and wants to return home at discharge. Case Management will follow.
--- NOTE | 2017-03-12 18:24 | Cardiology Follow-Up ---
Subjective Subjective Date of Service: Mar 12, 2017. Pt evaluation today including: conversation w/ patient, physical exam, chart review, lab review, review of studies, review of inpatient medication list Additional Details: Feeling okay today. Still with mild residual diarrhea No significant right lower extremity pain Denies fevers or chills Problem List Medical Problems: (1) Cellulitis Status: Acute (2) Noncompliance with medications Status: Acute (3) Pressure ulcer Status: Acute (4) UTI (urinary tract infection) Status: Acute Review of Systems Respiratory: No cough, No shortness of breath Cardiac: No chest pain, No edema Objective Vital Signs Last Vital Signs Documentation Date Time Temp Pulse Resp B/P (MAP) Pulse Ox O2 Delivery O2 Flow Rate FiO2 03/12/17 15:35 36.7 61 17 121/71 (88) 97 Room Air Physical Exam: General Appearance: no apparent distress ENT: hearing grossly normal Respiratory/Chest: lungs clear, normal breath sounds Cardiovascular: regular rate, rhythm, no edema Abdomen: soft Extremities: + pertinent finding (Right lower extremity dressing in place, clean dry and intact) Neurologic/Psychiatric: no motor/sensory deficits, alert, normal mood/affect Skin: warm/dry Assessment and Plan 1. Right lower extremity ulcerations/osteomyelitis 2. Peripheral artery disease--suspected occluded right SFA 3. Blood loss anemia/GI bleed/duodenal ulcer 4. Acute kidney injury-improved 5. Urinary tract infection 6. Atrial Fibrillation 7. Nonambulatory post multiple prior back surgeries Patient with deep ulceration involving the mid foot and MRI evidence suggestive of osteomyelitis. Previous vascular testing suggestive of moderate arterial insufficiency distal SFA occlusion. That setting feel the potential benefit from revascularization (WIFi [id number]) and reasonable to proceed with possible endovascular intervention Discussed risks benefits and alternatives of procedure with patient and willing to proceed. Plan on bilateral lower extremity angiogram tomorrow via left common femoral artery. Medications: Current Inpatient Medications Medications (Trade) Dose Ordered Sig/Everardo Route Start Time Stop Time Status Last Admin Dose Admin Acetaminophen (Tylenol Tab) 650 mg Q4H PRN PO 03/08/17 12:45 04/07/17 12:44 03/11/17 22:52 650 MG Ondansetron HCl (Zofran Inj) 4 mg Q6H PRN IV 03/08/17 12:45 04/07/17 12:44 Cholecalciferol (Vitamin D Tab) 1,000 inter.unit DAILY PO 03/09/17 09:00 04/08/17 08:59 03/12/17 09:37 1,000 INTER.UNIT Citalopram Hydrobromide (celeXA TAB) 20 mg QAM PO 03/09/17 09:00 04/08/17 08:59 03/12/17 09:37 20 MG Lorazepam (Ativan Tab) 0.5 mg TID PRN PO 03/08/17 13:45 04/07/17 13:44 03/12/17 10:02 0.5 MG Metoprolol Succinate (Toprol Xl Tab) 50 mg QAM PO 03/09/17 09:00 04/08/17 08:59 03/12/17 09:37 50 MG Senna/Docusate Sodium (Senokot S Tab) 1 tab DAILY PRN PO 03/08/17 13:45 04/07/17 13:44 Vancomycin HCl (Consult) 1 ea UD PRN N/A 03/08/17 14:15 04/07/17 14:14 Vancomycin HCl 1500 mg/Sodium Chloride 530 ml @ 200 mls/hr DAILY@0900 IV 03/12/17 09:00 03/22/17 08:59 03/12/17 09:51 200 MLS/HR Ertapenem 1 gm/ Sodium Chloride 50 ml @ 100 mls/hr DAILY@1200 IV 03/12/17 12:00 04/23/17 11:59 03/12/17 13:25 100 MLS/HR Pantoprazole Sodium (Protonix Tab) 40 mg BID PO 03/12/17 21:00 04/11/17 20:59 Lab Results: 03/12/17 03:40 03/12/17 03:48 Test 03/12/17 03:40 03/12/17 03:48 Red Blood Count 3.03 M/uL (4.2-5.4) Mean Corpuscular Volume 94.4 fL (80-100) Mean Corpuscular Hemoglobin 29.0 pg (25-34) Mean Corpuscular Hemoglobin Concent 30.8 g/dl (32-36) RDW Standard Deviation 56.2 fL (36.4-46.3) RDW Coefficient of Variation 16.4 % (11.5-14.5) Mean Platelet Volume 9.1 fL (7.4-10.4) Est Creatinine Clear Calc Drug Dose 34.3 ml/min Estimated GFR () 52.1 Estimated GFR (Non- 45.0 Vancomycin Level Trough 20.7 mcg/ml (SEE COMMENT)
--- NOTE | 2017-03-12 18:36 | Progress Note ---
Medicine Progress Note Date & Time of Visit: Mar 12, 2017 at 18:19. Subjective Pt was seen examined Lying in bed with no distress Pt said that she feels fine Denies any chest pain, palpitation, dizziness and SOB Objective Last 8 Hrs Date Time Temp Pulse Resp B/P (MAP) Pulse Ox O2 Delivery O2 Flow Rate FiO2 03/12/17 15:35 36.7 61 17 121/71 (88) 97 Room Air 03/12/17 10:50 36.6 63 18 122/77 (92) 99 Room Air Physical Exam: General- No acute distress Head- atraumatic Eyes- PERRL, EOMI ENT- oropharynx clear Neck- supple, no JVD Lungs- clear to auscultation Heart- irregular rhythm Abdomen- normal bowel sounds, soft Extremities-no calf tenderness Neuro- alert, oriented x 3; PERRL, EOMI Skin- warm & dry Laboratory Results: Last 24 Hours Test 03/12/17 03:40 03/12/17 03:48 White Blood Count 4.39 K/uL Red Blood Count 3.03 M/uL Hemoglobin 8.8 g/dL Hematocrit 28.6 % Mean Corpuscular Volume 94.4 fL Mean Corpuscular Hemoglobin 29.0 pg Mean Corpuscular Hemoglobin Concent 30.8 g/dl RDW Standard Deviation 56.2 fL RDW Coefficient of Variation 16.4 % Platelet Count 182 K/uL Mean Platelet Volume 9.1 fL Creatinine 1.09 mg/dl Est Creatinine Clear Calc Drug Dose 34.3 ml/min Estimated GFR () 52.1 Estimated GFR (Non- 45.0 Vancomycin Level Trough 20.7 mcg/ml Assessment & Plan ANEMIA Has been having dark stool Pt said that it is due to her iron supplement Found to have low hgb (9.9) on outpatient blood work Also on anticoagulant with Xarelto Hgb on admission 9.5 03/12 Received 1 unit of PRBC on 03/10 Continue holding Xarelto Monitor h/h Hb 8.8 today Gastro on board S/P EGD yesterday showed 15mm oozing duodenal ulcer DUODENAL ULCER S/P EGD done by Gastro dr. Rivera showed a non-obstructing oozing duodenal ulcer Protonix drip d/c Starting on protonix 40mg BID for 6 weeks, then continue Protonix 40mg daily Will need a repeat EGD in 3 months for surveillance Continue holding Xarelto, consider to restart on Sunday if h/h stable Avoid NSAIDs Continue monitor H/H WILLIAN Creatine on admission 1.8 Possible related to poor oral intake, diarrhea in combination with Bactrim Bactrim was d/c Creatine improved to 1.09 Losartan/furosemide have been on hold Avoid nephrotoxic agents continue monitor BMP Resolved NON HEALING RIGHT FOOT ULCERS, PADr Culture from 02/19/17 growing MRSA and was started on Bactrim Foot XR concerning for possible osteomyelitiss Continue IV Vanco Wound cx grew corynebacterium Continue daily wound care Wound care on board MRI of RLE showed findings compatible with osteomyelitis with cortical destruction involving the mid and distal portions of the third proximal phalanx, third DIP joint and third middle phalanx with possible adjacent skin ulcer. ID Consulted recommended to continue IV Vanco, then can transition to Zyvox ( caution since pt on SSRI) Will consult surgery for eval for the osteomyelitis PERIPHERAL ARTERY DISEASE Possible SFA occlusion Case discussed with intervention Cardiology Dr. Mercer Recommended for possible endovascular intervention of SFA occlusion for wound healing Patient would like to proceed with the procedure while in the hospital Continue to hold Xarelto NPO after midnight for the procedure in am UTI Urine cx grew ecoli afebrile and no leukocytosis D/C Zosyn Staring on Ertapenem, Will nee 3 more days No Bactrim due to her recent kidney injury while on Bactrim Stable CHRONIC ATRIAL FIBRILLATION Rate controlled on metoprolol Xarelto on hold due to dark stool and duodenal ulcer on EGD HX PE On Xarelto that has been held Stable HTN BP in the low side continue metoprolol continue to hold lasix and losartan DVT PROPHYLAXIS SCDs due to anemia and duodenal ulcer CODE STATUS FULL NO MECH VENTILATION DISPOSITION Will need placement once medially stable to discharge Refused to go to rehab or SNF Consultants: Cardio Wound care Procedures: EGD Current Inpatient Medications: Current Inpatient Medications Medications (Trade) Dose Ordered Sig/Everardo Route Start Time Stop Time Status Last Admin Dose Admin Acetaminophen (Tylenol Tab) 650 mg Q4H PRN PO 03/08/17 12:45 04/07/17 12:44 03/11/17 22:52 650 MG Ondansetron HCl (Zofran Inj) 4 mg Q6H PRN IV 03/08/17 12:45 04/07/17 12:44 Cholecalciferol (Vitamin D Tab) 1,000 inter.unit DAILY PO 03/09/17 09:00 04/08/17 08:59 03/12/17 09:37 1,000 INTER.UNIT Citalopram Hydrobromide (celeXA TAB) 20 mg QAM PO 03/09/17 09:00 04/08/17 08:59 03/12/17 09:37 20 MG Lorazepam (Ativan Tab) 0.5 mg TID PRN PO 03/08/17 13:45 04/07/17 13:44 03/12/17 10:02 0.5 MG Metoprolol Succinate (Toprol Xl Tab) 50 mg QAM PO 03/09/17 09:00 04/08/17 08:59 03/12/17 09:37 50 MG Senna/Docusate Sodium (Senokot S Tab) 1 tab DAILY PRN PO 03/08/17 13:45 04/07/17 13:44 Vancomycin HCl (Consult) 1 ea UD PRN N/A 03/08/17 14:15 04/07/17 14:14 Vancomycin HCl 1500 mg/Sodium Chloride 530 ml @ 200 mls/hr DAILY@0900 IV 03/12/17 09:00 03/22/17 08:59 03/12/17 09:51 200 MLS/HR Ertapenem 1 gm/ Sodium Chloride 50 ml @ 100 mls/hr DAILY@1200 IV 03/12/17 12:00 04/23/17 11:59 03/12/17 13:25 100 MLS/HR Pantoprazole Sodium (Protonix Tab) 40 mg BID PO 03/12/17 21:00 04/11/17 20:59
[2017-03-12] MEDS: PANTOprazole SOD 40 MG TAB PO SCH (21:22)
[2017-03-12] MEDS: ACETAMINOPHEN 325 MG TAB PO PRN (21:23)
--- NOTE | 2017-03-13 01:37 | NUR ---
ID: Pt A&Ox4, NPO at midnight. Pt saline locked. Pt on contact precautions. Pain medications per MD order. Pt nonambulatory. Discharge uncertain at this time
[2017-03-13 07:07] VITALS: BP 144/71; PULSE 70; TEMP 36.9; O2SAT 97
[2017-03-13 07:36] LABS: HEMATOCRIT 31.9 % (37-47); MEAN CELL VOLUME 94.1 fL (80-100); MEAN CORPUSCULAR HEMOGLOBIN 29.5 pg (25-34); MEAN CORPUSCULAR HGB CONC 31.3 g/dl (32-36); PLATELET COUNT 180 K/uL (130-400); RED CELL DISTRIBUTION WIDTH CV 16.5 % (11.5-14.5); RED CELL DISTRIBUTION WIDTH SD 56.4 fL (36.4-46.3); WHITE BLOOD COUNT 4.36 K/uL (4.8-10.8)
[2017-03-13 07:39] VITALS: BP 144/71; PULSE 70; TEMP 36.9; O2SAT 97
[2017-03-13] MEDS ORDERED: FENTANYL CITRATE INJ 50 MCG/1 ML 2 ML VIAL ONE (07:46)
[2017-03-13] MEDS ORDERED: MIDAZOLAM HCL 1 MG/ML 2ML VIAL ONE (07:46)
[2017-03-13 08:02] LABS: CALCIUM 8.1 mg/dl (8.5-10.1); CREATININE 0.93 mg/dl (0.60-1.20)
[2017-03-13] MEDS ORDERED: NITROGLYCERIN/D5W 100MCG/ML 20ML SYR ONE (08:04)
[2017-03-13] MEDS ORDERED: NiCARDipine HCL INJ 2.5 MG/ML 10 ML AMP ONE (08:05)
[2017-03-13] MEDS ORDERED: VANCOMYCIN TROUGH ONE (08:30)
--- NOTE | 2017-03-13 09:00 | History & Physical Bridge Note ---
H&P Re-Evaluation Bridge Note: I have examined the patient, reviewed the History & Physical and in the interval since the performance of the History & Physical I have noted the following changes of clinical significance: No changes noted
--- NOTE | 2017-03-13 09:01 | Procedure Note ---
Pre-Mod Sedation Assessment General Date of Moderate Sedation: Mar 13, 2017. Vital Signs: Vital Signs Past 12 Hours Date Time Temp Pulse Resp B/P (MAP) Pulse Ox O2 Delivery O2 Flow Rate FiO2 03/13/17 07:39 36.9 70 16 144/71 97 Room Air 03/13/17 07:07 36.9 70 16 144/71 (95) 97 Room Air 03/12/17 23:49 Room Air 03/12/17 23:10 36.5 81 16 124/57 (79) 98 Room Air Review Cardiovascular: regular rate, rhythm, no edema Abdomen: normal bowel sounds, non tender Lungs: chest non-tender, lungs clear Airway Class: III Pre-Sedation Airway Assessment Oral Cavity: Dentures Able to Visualize Vocal Cords: No Short Thick Neck: No Hx of Sleep Apnea: No Smoking Status: Never Smoker Mallampati Classification: Class III ASA Classification: Class III Procedure Planning Contraindications-for Mod Sed: None Yes Notes The planned sedation has been discussed with the patient and consent obtained. I have identified the patient, determined the appropriateness of sedation and have assessed the patient immediately prior to the procedure. All medicine(s) and interventions are by my order.
--- NOTE | 2017-03-13 09:55 | Pharmacy Progress Note ---
Pharmacy Antibiotic Prog Note Date of Service Mar 13, 2017. Subjective The patient is currently receiving vancomycin 1500 mg IV every 24 hours. The patient is currently on day # 6 of vancomycin IV therapy. Objective Height (Feet): 5 Height (Inches): 4.00 Weight (Kilograms): 73.200 Lab Results (24hrs): Test 03/13/17 07:13 White Blood Count 4.36 K/uL (4.8-10.8) Red Blood Count 3.39 M/uL (4.2-5.4) Hemoglobin 10.0 g/dL (12.0-16.0) Hematocrit 31.9 % (37-47) Mean Corpuscular Volume 94.1 fL (80-100) Mean Corpuscular Hemoglobin 29.5 pg (25-34) Mean Corpuscular Hemoglobin Concent 31.3 g/dl (32-36) RDW Standard Deviation 56.4 fL (36.4-46.3) RDW Coefficient of Variation 16.5 % (11.5-14.5) Platelet Count 180 K/uL (130-400) Mean Platelet Volume 9.0 fL (7.4-10.4) Sodium Level 140 mmol/L (136-145) Potassium Level 4.0 mmol/L (3.5-5.1) Chloride Level 112 mmol/L (98-107) Carbon Dioxide Level 21 mmol/L (21-32) Anion Gap 7.0 mmol/L (3-11) Blood Urea Nitrogen 11 mg/dl (7-18) Creatinine 0.93 mg/dl (0.60-1.20) Est Creatinine Clear Calc Drug Dose 40.2 ml/min Estimated GFR () 63.2 Estimated GFR (Non- 54.5 BUN/Creatinine Ratio 12.2 (10-20) Random Glucose 83 mg/dl (70-99) Calcium Level 8.1 mg/dl (8.5-10.1) Vancomycin Level Trough 24.6 mcg/ml (SEE COMMENT) Assessment & Plan Assessment * 89 yo F presented to ED w diarrhea - found to have multiple problems including upper GIB, WILLIAN, ESBL E. coli UTI, osteomyelitis (recent culture wound with MRSA), and SFA occlusion. Surgery for SFA occlusion planned for tomorrow ( Sunday). * Bactrim as outpatient for MRSA in wound culture from 02/19. This admission, MRI indicates may be osteomyelitis. Anticipate need for prolonged outpatient therapy with MRSA coverage. Per ID, should not resume Bactrim as outpatient. Therefore may need vancomycin (or daptomycin). Will attempt to schedule vancomycin q24h to facilitate outpatient utilization. * Zosyn switched to ertapenem for ESBL E. coli UTI and continued broad-spectrum coverage for osteomyelitis. * ID consulted - continue ertapenem and vancomycin for now. Suggested consideration of surgical intervention for osteomyelitis. * Renal function continues to improve - SCr now at/near baseline Vancomycin * Goal vancomycin trough 15-20 mcg/mL - would prefer upper end of therapeutic range for MRSA osteomyelitis * Level of 24.6 mcg/mL this AM is supratherapeutic * However, it was drawn 2 hrs early and thus is falsely elevated * Also, per RN, vancomycin dose yesterday was run at ~1/2 ordered rate 2nd concern for Redmans which will also increase the trough. Per RN, Patient had tolerated 1250 mg doses at usual rate in the past * Despite these two considerations, level is likely to remain supratherapeutic if continue current dose * Will attempt to schedule vancomycin at q24h interval to facilitate outpatient utilization (if desired) * Trough in 48 hours Plan * Decrease vancomycin 1250 mg IV q24h * Trough 03/15 @ 1130 Pharmacy will continue to follow and will adjust dose/frequency as necessary. Thank you
--- NOTE | 2017-03-13 09:58 | CONSULTATION REPORT ---
DATE OF CONSULTATION: 03/12/2017 SUMMARY: The patient was seen last evening and full evaluation of her right lower extremity was not done at this time. The reason being she is scheduled to have an angiogram and possible balloon dilatation of the superficial femoral artery today on 03/13/2017. Apparently that has been put on hold until tomorrow due to Dr. Mercer having an emergency. Once we have more data, we can make appropriate recommendations and follow up regarding her osteomyelitis of the third toe. My suspicion is that this will need resection. We will await further data before making a final recommendation as stated.
[2017-03-13 10:23] VITALS: BP 149/77; PULSE 83
[2017-03-13] MEDS: CHOLECALCIFEROL 1000 INTER.UNIT TAB PO SCH (10:25)
[2017-03-13] MEDS: CITALOPRAM 20 MG TAB PO SCH (10:25)
[2017-03-13] MEDS: PANTOprazole SOD 40 MG TAB PO SCH ×2 (10:25→21:42)
[2017-03-13] MEDS: METOPROLOL SUCC 50MG EXT REL TAB PO SCH (10:25)
[2017-03-13] MEDS: LORAZEPAM 0.5 MG TAB PO PRN ×3 (10:32→21:43)
[2017-03-13] MEDS: ERTAPENEM IV 1 GM in SODIUM CHLOR 0.9% AD-VAN 50ML IV SCH (11:33)
[2017-03-13] MEDS ORDERED: VANCOMYCIN IV 1,250 MG in SODIUM CHLORIDE 0.9% 250ML 250 ML IV SCH (12:00)
--- NOTE | 2017-03-13 13:36 | Progress Note ---
Subjective Date of Service: Mar 13, 2017. Subjective tolerating abx. awaiting surgical decision re amp. afebrile. previous culture with mrsa. no overnight events. Problem List Medical Problems: (1) Cellulitis Status: Acute (2) Noncompliance with medications Status: Acute (3) Pressure ulcer Status: Acute (4) UTI (urinary tract infection) Status: Acute Objective Vital Signs Date Time Temp Pulse Resp B/P (MAP) Pulse Ox O2 Delivery O2 Flow Rate FiO2 03/13/17 10:23 83 149/77 (101) 03/13/17 07:39 36.9 70 16 144/71 97 Room Air 03/13/17 07:20 Room Air 03/13/17 07:07 36.9 70 16 144/71 (95) 97 Room Air 03/12/17 23:49 Room Air 03/12/17 23:10 36.5 81 16 124/57 (79) 98 Room Air 03/12/17 18:15 99 Room Air 03/12/17 18:15 37.0 60 18 133/69 (90) 99 Room Air 03/12/17 16:00 Room Air 03/12/17 15:35 36.7 61 17 121/71 (88) 97 Room Air Laboratory Results Item Value Date Time Gram Stain - Final Complete 02/19/17 1030 Ulcer Ankle Right Urine Culture - Final Complete 03/08/17 1040 Urine , Clean Catch Escherichia Coli Blood Culture - Preliminary Resulted 03/08/17 1616 Blood NO GROWTH TO DATE. Blood Culture - Preliminary Resulted 03/08/17 1631 Blood NO GROWTH TO DATE. Last 24 Hours Test 03/13/17 07:13 White Blood Count 4.36 K/uL Red Blood Count 3.39 M/uL Hemoglobin 10.0 g/dL Hematocrit 31.9 % Mean Corpuscular Volume 94.1 fL Mean Corpuscular Hemoglobin 29.5 pg Mean Corpuscular Hemoglobin Concent 31.3 g/dl RDW Standard Deviation 56.4 fL RDW Coefficient of Variation 16.5 % Platelet Count 180 K/uL Mean Platelet Volume 9.0 fL Sodium Level 140 mmol/L Potassium Level 4.0 mmol/L Chloride Level 112 mmol/L Carbon Dioxide Level 21 mmol/L Anion Gap 7.0 mmol/L Blood Urea Nitrogen 11 mg/dl Creatinine 0.93 mg/dl Est Creatinine Clear Calc Drug Dose 40.2 ml/min Estimated GFR () 63.2 Estimated GFR (Non- 54.5 BUN/Creatinine Ratio 12.2 Random Glucose 83 mg/dl Calcium Level 8.1 mg/dl Vancomycin Level Trough 24.6 mcg/ml Assessment and Plan (1) Osteomyelitis Assessment & Plan: continue vanco for now, hopefully can change to po zyvox at d/c. will need to hold ssri to do so (2) UTI (urinary tract infection) Assessment & Plan: continue ertapenem day 2/3
--- NOTE | 2017-03-13 14:29 | NUR ---
A: Patient's IV site infiltrated and patient is refusing a new IV site. States she does not want the antibiotics anymore and she just wants to go home. Dr. Gutierres made aware.
[2017-03-13 15:37] VITALS: BP 148/75; PULSE 62; TEMP 36.5; O2SAT 99
--- NOTE | 2017-03-13 16:04 | NUR ---
RD follow-up. Full assessment in EMR, see linked note for details. Level of care II. Addendum: 03/13/17 at [address] Amended: Links added.
--- NOTE | 2017-03-13 18:36 | Progress Note ---
Internal Med Progress Note Date of Service: Mar 13, 2017. Provider Documentation: SUBJECTIVE: pt sitting on chair , denies of any pain or discomfort on rt foot or leg no fever or chills Rt SFA angiogram and stent placement this am was cancelled as motor vehicle field representative needed to do emergent procedures pt is very upset as she was taken down to holding area waited for 30mins and had to returned back to floor does not want the procedure to be done at all pt counselled by Me and Cardiology Dr Mercer -procedure is scheduled for 10 am tomorrow pt remains reluctant , says she is 89 yo does not want to go through this wants to think about it and postpone it for future ( after the holidays ) , wants to be discharged home tomorrow OBJECTIVE: Vital Signs-as noted below Exam: General-elderly female , well appearing , no sign of distress Eyes-sclera non icteric , PERRLA/EOMI ENT-hearing aid present, Neck-trachea midline Lungs-diminished , no rales or wheeze auscultated Heart-regular S1/S2 Abdomen-soft, non tender Extremities-multiple shallow ulcers on rt leg /ant lu , rt foot on bandage and strapped in protective shoe Neuro-AAO x3, no focal neurological deficit Lab data as noted below. ASSESSMENT & PLAN: NON HEALING RIGHT FOOT ULCERS/IN SETTING OF PERIPHERAL ARTERIAL DISEASE Culture from 02/19/17 growing MRSA and was started on Bactrim ; DISCONTINUED DUE TO WILLIAN On IV Vanco ; repeat Wound cx grew corynebacterium appreciate ID eval , transitioned to PO Zyvox ( pt does not want any more IV Abx ) SSRI Discontinued for drug interaction Continue daily wound care Wound care on board OSTEOMYELITIS OF RT FOOT Foot XR concerning for possible osteomyelitis MRI of RLE showed findings compatible with osteomyelitis with cortical destruction involving the mid and distal portions of the third proximal phalanx, third DIP joint and third middle phalanx with possible adjacent skin ulcer. Surgery consulted , appreciate input pt will need amputation of rt 3rd toe will need vascular procedure / endovascular intervention of SFA occlusion for wound healing PERIPHERAL ARTERY DISEASE with rt SFA occlusion Case discussed with intervention Cardiology Dr. Mercer pt was scheduled for endovascular repair /angiogram of occluded Rt SFA today morning unable to have the procedure done due to multiple emergency procedures in [place] lab[facility] Dr Mercer offered to have the procedure done tomorrow morning pt refused to have any intervention done pt initially was reluctant to have procedure done she also is against any rehab /SNF -there may be need for ongoing wound care / rehab if pt proceeds for toe amputation depending her recovery /post op healing wants to be discharged home tomorrow with PO Abx will think it through and have follow up in few weeks after the holidays ACUTE BLOOD LOSS ANEMIA/GI BLEED /PEPTIC ULCER DISEASE S/P 1 unit of PRBC tx on 03/10 appreciate GI eval EGD shows 15 mm duodenal ulcer with evidence of bleeding Continue to hold Xarelto for another day can be resumed tomorrow if H& H remains stable Protonix 40mg BID for 6 weeks, then continue Protonix 40mg daily Will need a repeat EGD in 3 months for surveillance Avoid NSAIDs Acute Kidney Injury on ckd stage 3 Creatine on admission 1.8 Possible related to poor oral intake, diarrhea in combination with Bactrim Bactrim was d/c Creatine improved to approx baseline Losartan/furosemide have been on hold Avoid nephrotoxic agents continue monitor BMP UTI Urine cx grew E.Coli ESBL appreciate ID eval on Ertapenem, Will need # 3 days tx CHRONIC ATRIAL FIBRILLATION Rate controlled on metoprolol Xarelto on hold due to GI bleed can be resumed prior to discharge if H&H remains stable no further episode of dark stool for evidence of GI bleed HX OF PE Xarelto on hold for GI bleed /anemia HTN continue metoprolol Lasix and losartan on hold for WILLIAN DVT PROPHYLAXIS SCDs due to anemia and duodenal ulcer CODE STATUS FULL NO MECH VENTILATION DISPOSITION Refused to go to rehab or SNF wants to be discharged home tomorrow will need home health visiting nurse for continued wound care Medicine follow up with Dr Burton Consultants: Interventional Cardiology Wound care ID [facility] Procedures: EGD Vital Signs: Date Time Temp Pulse Resp B/P (MAP) Pulse Ox O2 Delivery O2 Flow Rate FiO2 03/13/17 15:45 Room Air 03/13/17 15:37 36.5 62 16 148/75 (99) 99 Room Air 03/13/17 10:23 83 149/77 (101) 03/13/17 07:39 36.9 70 16 144/71 97 Room Air 03/13/17 07:20 Room Air 03/13/17 07:07 36.9 70 16 144/71 (95) 97 Room Air 03/12/17 23:49 Room Air 03/12/17 23:10 36.5 81 16 124/57 (79) 98 Room Air Lab Results: Results Past 24 Hours Test 03/13/17 07:13 Range/Units White Blood Count 4.36 4.8-10.8 K/uL Red Blood Count 3.39 4.2-5.4 M/uL Hemoglobin 10.0 12.0-16.0 g/dL Hematocrit 31.9 37-47 % Mean Corpuscular Volume 94.1 80-100 fL Mean Corpuscular Hemoglobin 29.5 25-34 pg Mean Corpuscular Hemoglobin Concent 31.3 32-36 g/dl RDW Standard Deviation 56.4 36.4-46.3 fL RDW Coefficient of Variation 16.5 11.5-14.5 % Platelet Count 180 130-400 K/uL Mean Platelet Volume 9.0 7.4-10.4 fL Sodium Level 140 136-145 mmol/L Potassium Level 4.0 3.5-5.1 mmol/L Chloride Level 112 98-107 mmol/L Carbon Dioxide Level 21 21-32 mmol/L Anion Gap 7.0 3-11 mmol/L Blood Urea Nitrogen 11 7-18 mg/dl Creatinine 0.93 0.60-1.20 mg/dl Est Creatinine Clear Calc Drug Dose 40.2 ml/min Estimated GFR () 63.2 Estimated GFR (Non- 54.5 BUN/Creatinine Ratio 12.2 10-20 Random Glucose 83 70-99 mg/dl Calcium Level 8.1 8.5-10.1 mg/dl Vancomycin Level Trough 24.6 SEE COMMENT mcg/ml
[2017-03-13] MEDS: LINEZOLID 600 MG TAB PO SCH (21:43)
[2017-03-13] MEDS: ACETAMINOPHEN 325 MG TAB PO PRN (21:47)
[2017-03-13] MEDS ORDERED: PANT1TAB4 PO (22:22)
[2017-03-13 23:35] VITALS: BP 103/64; PULSE 70; TEMP 36.6; O2SAT 97
--- NOTE | 2017-03-14 04:28 | NUR ---
ID: Pt A&Ox4, denies pain throughout shift, voids in bedpan. Pt repositioned throughout shift as needed, heels floated off bed, pt continues to refuse waffle boots. Per report pt is OOB with 2 assist to pivot to chair or wheelchair. No IV access at this time. Pt on RA. Call padilla in reach. Plan for discharge remains uncertain.
[2017-03-14 08:19] VITALS: BP 143/77; PULSE 64; TEMP 36.6; O2SAT 97
[2017-03-14] MEDS: LORAZEPAM 0.5 MG TAB PO PRN ×3 (08:42→20:53)
[2017-03-14] MEDS: PANTOprazole SOD 40 MG TAB PO SCH ×2 (08:42→20:53)
[2017-03-14] MEDS: CHOLECALCIFEROL 1000 INTER.UNIT TAB PO SCH (08:43)
[2017-03-14] MEDS: METOPROLOL SUCC 50MG EXT REL TAB PO SCH (08:43)
[2017-03-14] MEDS: LINEZOLID 600 MG TAB PO SCH ×2 (08:44→20:53)
[2017-03-14 09:14] VITALS: O2SAT 94
--- NOTE | 2017-03-14 11:01 | Progress Note ---
Subjective Date of Service: Mar 14, 2017. Subjective Pt evaluation today including: conversation w/ patient, physical exam, chart review, lab review pt oob to chair, was to have vascular procedure yesterday, this was postponed and now pt states she does not want to continue with this. no pain in foot. was changed to zyvox, ssri stopped. also on ertapenem day 3/3 for uti. tolerating well. denies pain, no f/c. no abd pain. states she would like to be d/c all remaining ros reviewed and are negative. Problem List Medical Problems: (1) Cellulitis Status: Acute (2) Noncompliance with medications Status: Acute (3) Pressure ulcer Status: Acute (4) UTI (urinary tract infection) Status: Acute Objective Vital Signs Date Time Temp Pulse Resp B/P (MAP) Pulse Ox O2 Delivery O2 Flow Rate FiO2 03/14/17 09:14 94 Room Air 03/14/17 08:19 36.6 64 18 143/77 (99) 97 Room Air 03/14/17 07:40 Room Air 03/13/17 23:35 36.6 70 16 103/64 (77) 97 Room Air 03/13/17 23:30 Room Air 03/13/17 15:45 Room Air 03/13/17 15:37 36.5 62 16 148/75 (99) 99 Room Air Physical Exam General Appearance: WD/WN, no apparent distress Eyes: normal inspection, EOMI Neck: supple Respiratory/Chest: lungs clear, normal breath sounds, no respiratory distress Cardiovascular: regular rate, rhythm, no edema Abdomen: non tender, soft Extremities: non-tender, no pedal edema Neurologic/Psychiatric: alert, oriented x 3 Skin: normal color Assessment and Plan (1) Osteomyelitis Assessment & Plan: continue vanco for now, hopefully can change to po zyvox at d/c. will need to hold ssri to do so, would give 4 weeks. (2) UTI (urinary tract infection)
[2017-03-14] MEDS ORDERED: VANCOMYCIN TROUGH ONE (11:30)
[2017-03-14 11:55] VITALS: BP 127/57; PULSE 64; TEMP 36.7; O2SAT 97
--- NOTE | 2017-03-14 12:36 | Cardiology Follow-Up ---
Subjective Subjective Date of Service: Mar 14, 2017. Pt evaluation today including: conversation w/ patient, physical exam, chart review, lab review, review of studies, conversation w/ marine engineering consultant, review of inpatient medication list Additional Details: Lower extremity angiogram postponed yesterday. Patient declining procedure today. No other new complaints. Problem List Medical Problems: (1) Cellulitis Status: Acute (2) Noncompliance with medications Status: Acute (3) Pressure ulcer Status: Acute (4) UTI (urinary tract infection) Status: Acute Review of Systems Respiratory: No cough, No shortness of breath Cardiac: No chest pain, No edema Objective Vital Signs Last Vital Signs Documentation Date Time Temp Pulse Resp B/P (MAP) Pulse Ox O2 Delivery O2 Flow Rate FiO2 03/14/17 11:55 36.7 64 18 127/57 (80) 97 Room Air Physical Exam: General Appearance: no apparent distress Neck: supple Respiratory/Chest: lungs clear, normal breath sounds, no respiratory distress Cardiovascular: regular rate, rhythm, no edema Abdomen: non tender, soft Extremities: non-tender, no pedal edema, + pertinent finding (Dressing in place over RLE wounds, C/D/I) Neurologic/Psychiatric: alert Skin: normal color Assessment and Plan 1. Right lower extremity ulcerations/osteomyelitis 2. Peripheral artery disease--suspected occluded right SFA 3. Blood loss anemia/GI bleed/duodenal ulcer 4. Acute kidney injury-improved 5. Urinary tract infection 6. Atrial Fibrillation 7. Nonambulatory post multiple prior back surgeries Long discussion with patient yesterday evening and this AM regarding possible endovascular intervention. At this time patient is declining procedure and wishes to head home. She will follow-up with the wound center. If interested in proceeding with intervention in the future could be done as an outpatient. Would resume prior NOAC. Resume antihypertensives as an outpatient as needed. Medications: Current Inpatient Medications Medications (Trade) Dose Ordered Sig/Everardo Route Start Time Stop Time Status Last Admin Dose Admin Acetaminophen (Tylenol Tab) 650 mg Q4H PRN PO 03/08/17 12:45 04/07/17 12:44 03/13/17 21:47 650 MG Ondansetron HCl (Zofran Inj) 4 mg Q6H PRN IV 03/08/17 12:45 04/07/17 12:44 Cholecalciferol (Vitamin D Tab) 1,000 inter.unit DAILY PO 03/09/17 09:00 04/08/17 08:59 03/14/17 08:43 1,000 INTER.UNIT Lorazepam (Ativan Tab) 0.5 mg TID PRN PO 03/08/17 13:45 04/07/17 13:44 03/14/17 08:42 0.5 MG Metoprolol Succinate (Toprol Xl Tab) 50 mg QAM PO 03/09/17 09:00 04/08/17 08:59 03/14/17 08:43 50 MG Senna/Docusate Sodium (Senokot S Tab) 1 tab DAILY PRN PO 03/08/17 13:45 04/07/17 13:44 Ertapenem 1 gm/ Sodium Chloride 50 ml @ 100 mls/hr DAILY@1200 IV 03/12/17 12:00 04/23/17 11:59 03/13/17 11:33 100 MLS/HR Pantoprazole Sodium (Protonix Tab) 40 mg BID PO 03/12/17 21:00 04/11/17 20:59 03/14/17 08:42 40 MG Linezolid (Zyvox Tab) 600 mg BID PO 03/13/17 21:00 03/23/17 20:59 03/14/17 08:44 600 MG
[2017-03-14] MEDS: ERTAPENEM IV 1 GM in SODIUM CHLOR 0.9% AD-VAN 50ML IV SCH (12:45)
--- NOTE | 2017-03-14 12:51 | NUR ---
Reviewed chart. Spoke with Pt. Advised that [facility] will not accept Pt in return. She requested that we call Them again to see if they would reconsider accepting her. Spoke with Ember at [facility]. They are not willing to accept Pt in return. they feel that it would not be a safe discharge plan. They feel that the Pt needs rehab before she can return home. They states they would be willing to reevaluate Pt if she goes to rehab but at this time, they do not feel they can meet her needs Spoke with PT. They do not feel that PT is safe with independent transfer. She needed min assist to transfer to chair. They would also recommend rehab or if she refuses, she would need home health. Spoke with Pt and advised that [facility] is not willing to accept Pt in return if she does not go to therapy. Also advised that our therapy department is recommending rehab. She became very tearful stating she just wants to return home. She states that she is not interested in rehab. Attempted to discuss short term rehab at [facility] or [facility]. Pt was very adamant that she did not want either. She states that she is willing to have a different home health agency. Referral faxed to [facility]. awaiting to hear if they can accept Pt.
[2017-03-14] MEDS ORDERED: LINE1TAB2 PO (13:31)
[2017-03-14 15:48] VITALS: BP 159/79; PULSE 72; TEMP 36.6; O2SAT 97
--- NOTE | 2017-03-14 18:28 | Progress Note ---
Internal Med Progress Note Date of Service: Mar 14, 2017. Provider Documentation: SUBJECTIVE: offers no complain no pain in rt leg or food , no fever or chills contemplating about going home prior home health visiting agency -refused to take up her care as feels unsafe for the pt to return home will not be able to provide adequate care still not sure about the vascular procedure and toe amputation OBJECTIVE: Vital Signs-as noted below Exam: General-elderly female , well appearing , no sign of distress Eyes-sclera non icteric , PERRLA/EOMI ENT-hearing aid present, Neck-trachea midline Lungs-diminished , no rales or wheeze auscultated Heart-regular S1/S2 Abdomen-soft, non tender Extremities-multiple shallow ulcers on rt leg /ant lu , rt foot on bandage and strapped in protective shoe Neuro-AAO x3, no focal neurological deficit Lab data as noted below. ASSESSMENT & PLAN: NON HEALING RIGHT FOOT ULCERS/IN SETTING OF PERIPHERAL ARTERIAL DISEASE Culture from 02/19/17 growing MRSA and was started on Bactrim ; DISCONTINUED DUE TO WILLIAN was On IV Vanco ; repeat Wound cx grew corynebacterium appreciate ID eval , transitioned to PO Zyvox ( pt does not want any more IV Abx ) will need 4 weeks of tx SSRI Discontinued for drug interaction Wound care consulted -appreciate input Continue daily wound care/will need continued wound clinic follow up pt will need vascular procedure to improve lower ext blood flow -to improve the wounds healing OSTEOMYELITIS OF RT FOOT Foot XR concerning for possible osteomyelitis MRI of RLE showed findings compatible with osteomyelitis with cortical destruction involving the mid and distal portions of the third proximal phalanx, third DIP joint and third middle phalanx with possible adjacent skin ulcer. 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 Mercer pt was scheduled for endovascular repair /angiogram of occluded Rt SFA unable to have the procedure done due to multiple emergency procedures in laboratory monitor Dr Mercer offered to have the procedure done next day pt refused to have any intervention done she also is against any rehab /SNF -there may be need for ongoing wound care / rehab if pt proceeds for toe amputation depending her recovery /post op healing wanted to go home PO Abx pt counselled again I called pt's Son -Edi De La Vega updated regarding her mothers decision not to have any procedure which may lead to life threatening infection /lost of rt foot even rt leg son is aware -mentions pt always been stubborn , made her won decisions He will call the pt and try to convince her to agree for the procedure - Vascular intervention for occluded RT SFA and Rt 3rd toe amputation bu surgery if needed ACUTE BLOOD LOSS ANEMIA/GI BLEED /PEPTIC ULCER DISEASE Hb remains stable no further episode of GI bleed S/P 1 unit of PRBC tx on 03/10 appreciate GI eval EGD shows 15 mm duodenal ulcer with evidence of bleeding Continue to hold Xarelto for another day can be resumed tomorrow if H& H remains stable Protonix 40mg BID for 6 weeks, then continue Protonix 40mg daily Will need a repeat EGD in 3 months for surveillance Avoid NSAIDs Acute Kidney Injury on ckd stage 3 resolved Creatine on admission 1.8 Possible related to poor oral intake, diarrhea in combination with Bactrim Bactrim was d/c Creatine improved to approx baseline Losartan/furosemide have been on hold Avoid nephrotoxic agents continue monitor BMP UTI Urine cx grew E.Coli ESBL appreciate ID eval on Ertapenem, completed # 3 days tx CHRONIC ATRIAL FIBRILLATION Rate controlled on metoprolol Xarelto was on hold due to GI bleed can be resumed prior to discharge if H&H remains stable /and if no vascular or surgical procedure done no further episode of dark stool for evidence of GI bleed HX OF PE Xarelto on hold for GI bleed /anemia HTN continue metoprolol Lasix and losartan on hold for WILLIAN will resumed as Cr at baseline DVT PROPHYLAXIS SCDs due to anemia and duodenal ulcer CODE STATUS FULL NO MECH VENTILATION DISPOSITION Refused to go to rehab or SNF wants to be discharged home pt was followed with [facility] health nurse Home health nurse refuse to continue care -as feels pt is unsafe to return home , adequate care for complicated non healing wound could not be provided will need continued follow up at Wound Care clinic Medicine follow up with Dr Burton Consultants: Interventional Cardiology Wound care ID [facility] Procedures: EGD Vital Signs: Date Time Temp Pulse Resp B/P (MAP) Pulse Ox O2 Delivery O2 Flow Rate FiO2 03/15/17 08:00 36.4 77 16 150/77 (101) 96 Room Air 03/15/17 07:45 Room Air 03/15/17 00:00 Room Air 03/14/17 23:25 37.0 53 16 145/76 (99) 98 Room Air 03/14/17 15:48 36.6 72 16 159/79 (105) 97 Room Air 03/14/17 15:45 Room Air 03/14/17 11:55 36.7 64 18 127/57 (80) 97 Room Air Lab Results: Results Past 24 Hours Test 03/14/17 16:14 Range/Units Stool Occult Blood NEGATIVE NEGATIVE Microbiology Results 03/14/17 Shiga Toxin Test, Received Pending 03/14/17 Stool Culture, Received Pending 03/14/17 C.difficile Toxin B Gene (PCR) - Final, Complete No C. difficile toxin B gene detected
--- NOTE | 2017-03-14 19:59 | Progress Note ---
Progress Note Date of Service Mar 14, 2017. Progress Note ADDENDUM : pt willing to have endovascular procedure done for RT Superficial femoral artery occlusion updated Dr Mercer , will try to fit patient in OR scheduled tomorrow ordered for NPO past midnight pt has not been started on any anticoagulation yet Son given update over the phone
[2017-03-14] MEDS: ACETAMINOPHEN 325 MG TAB PO PRN (20:54)
[2017-03-14 23:25] VITALS: BP 145/76; PULSE 53; TEMP 37; O2SAT 98
[2017-03-15] VITALS (9 sets, daily range): BP systolic 131–153; BP diastolic 61–77; PULSE 53–78; TEMP 36.3–36.8; O2SAT 93–99
--- NOTE | 2017-03-15 05:04 | NUR ---
ID: Pt A&Ox4, denies pain throughout shift, B/L LE optifoams are intact throughout shift. R foot dressing changed at start of shift. Pt voids in bedpan with 2 assist. Plan for OR today for vascular surgery. IV is SL, pt on RA.
[2017-03-15] MEDS: PANTOprazole SOD 40 MG TAB PO SCH ×2 (08:47→20:13)
[2017-03-15] MEDS: METOPROLOL SUCC 50MG EXT REL TAB PO SCH (08:47)
[2017-03-15] MEDS: LINEZOLID 600 MG TAB PO SCH ×2 (08:48→20:09)
[2017-03-15] MEDS: CHOLECALCIFEROL 1000 INTER.UNIT TAB PO SCH (08:48)
--- NOTE | 2017-03-15 09:30 | Wound Consultation: Inpatient ---
Wound Consultation Date of Consultation: Mar 12, 2017. Attending Physician: Edyta Gutierres M.D. Reason for Consultation: Pressure ulcerations to the right foot and third toe History of Present Illness Patient was recently admitted for reevaluation treatment daily injury. Patient has been well-known to the wound clinic recently seen 10 days ago for persistent pressure ulcerations of the right foot and right third toe. Patient today denies any increased pain swelling or redness. Patient denies any chest pain shortness of breath abdominal discomfort nausea or vomiting. Patient denies any other systemic complaints. Family History Patient reports no known family medical history. Social History Smoking Status: Never Smoker Alcohol Use: none Housing Status: assisted living Allergies Coded Allergies: Celecoxib (Verified Adverse Reaction, Unknown, gi upset, 03/08/17) Home Medications Scheduled Acetaminophen (Tylenol), 500 MG PO BID Cholecalciferol (Vitamin D3), 1 TAB PO DAILY Citalopram Hydrobromide (Celexa), 20 MG PO QAM Diclofenac Sodium (Topical) (Voltaren 1% Top Gel), 2 GM TOP TID Linezolid (Linezolid), 600 MG PO BID Losartan Potassium (Cozaar), 50 MG PO PM Metoprolol Succinate (Toprol Xl), 50 MG PO QAM Pantoprazole (Pantoprazole Sodium), 40 MG PO BID Rivaroxaban (Xarelto), 15 MG PO PM Sulfa/Trimethoprim (Bactrim Ds 800MG/160MG), 1 TAB PO BID Tolnaftate (Tinactin), Unknown Dose TOP UD Scheduled PRN Furosemide (Lasix), 20 MG PO 3XWK PRN for edema Lorazepam (Ativan), 0.5 MG PO TID PRN for Anxiety Sennosides-Docusate Sodium (Stool Softener), 1 TAB PO DAILY PRN for Constipation Inpatient Medications Current Inpatient Medications Medications (Trade) Dose Ordered Sig/Everardo Route Start Time Stop Time Status Last Admin Dose Admin Acetaminophen (Tylenol Tab) 650 mg Q4H PRN PO 03/08/17 12:45 04/07/17 12:44 03/14/17 20:54 650 MG Ondansetron HCl (Zofran Inj) 4 mg Q6H PRN IV 03/08/17 12:45 04/07/17 12:44 Cholecalciferol (Vitamin D Tab) 1,000 inter.unit DAILY PO 03/09/17 09:00 04/08/17 08:59 03/14/17 08:43 1,000 INTER.UNIT Lorazepam (Ativan Tab) 0.5 mg TID PRN PO 03/08/17 13:45 04/07/17 13:44 03/14/17 20:53 0.5 MG Metoprolol Succinate (Toprol Xl Tab) 50 mg QAM PO 03/09/17 09:00 04/08/17 08:59 03/15/17 08:47 50 MG Senna/Docusate Sodium (Senokot S Tab) 1 tab DAILY PRN PO 03/08/17 13:45 04/07/17 13:44 03/14/17 14:35 1 TAB Pantoprazole Sodium (Protonix Tab) 40 mg BID PO 03/12/17 21:00 04/11/17 20:59 03/14/17 20:53 40 MG Linezolid (Zyvox Tab) 600 mg BID PO 03/13/17 21:00 03/23/17 20:59 03/14/17 20:53 600 MG Physical Exam Date Time Temp Pulse Resp B/P (MAP) Pulse Ox O2 Delivery O2 Flow Rate FiO2 03/15/17 08:00 36.4 77 16 150/77 (101) 96 Room Air 03/15/17 00:00 Room Air 03/14/17 23:25 37.0 53 16 145/76 (99) 98 Room Air 03/14/17 15:48 36.6 72 16 159/79 (105) 97 Room Air 03/14/17 15:45 Room Air 03/14/17 11:55 36.7 64 18 127/57 (80) 97 Room Air General: The patient is sitting in a hospital bed in no distress. Alert, cooperative and appropriate to all questions. HEENT: Pupils equal and reactive to light. Sclera clear, EOM intact. Neck: Supple, No JVD noted Chest: CTA in all wang. No deformity Heart: RRR without murmurs, S3, S4, thrills, rubs or heaves Extremities: Ulceration is noted to the right third toe dorsal aspect 1.2 x 1.2 x 0.1 cm and to the right foot measuring 1.8 x 3 x 0.1 cm. There is central sluffing scattered eschar formation noted. No active drainage or odor present. No prominent edema noted. Neurological: Alert and responsive. No focal deficits. Laboratory Results Last 24 Hours Test 03/14/17 16:14 Stool Occult Blood NEGATIVE Assessment & Plan Assessment: Stage II pressure ulcer right third toe Stage II pressure ulcer right foot Plan: Debridement was indicated. With the patient's permission after application topical Xylocaine 4% both the right third toe and right foot were debrided with a #5 curette of central slough and surrounding eschar. No significant bleeding occurred. The sites will continue to be managed with Aquacel Ag and gauze dressings. Dressings will be change daily. Patient will continue to be monitored during her hospitalization followed up in the outpatient clinic upon discharge. This represented a non-excisional debridement of less than 20 cm.
--- NOTE | 2017-03-15 09:48 | Progress Note ---
Progress Note Date of Service Mar 15, 2017. Progress Note Seen today with Dr. Head Angiogram rescheduled for today Will make further recommendations after angio
--- NOTE | 2017-03-15 09:56 | NUR ---
Reviewed chart. Spoke with [facility]. They can see Pt. Advised that she will need PT/OT/aide/RN. Also advised that [facility] is working on starting waiver services. They are aware that [facility] won't accept in return. They are willing to accept Pt as a client. Will inform MD. Anticipate that PT will be discharged to home today. Addendum: 03/15/17 at 1353 by Ana MCDOWELL Spoke with [facility] and advised that Pt is now for procedure today and will not be discharged. They requested to be updated when pt is stable for discharge.
[2017-03-15] MEDS ORDERED: VANCOMYCIN TROUGH ONE (11:30)
--- NOTE | 2017-03-15 12:43 | NUR ---
A NOTE: Pt is to be going to have angiogram around 2:00PM. Per Antonella's request, pre moderate sedation assessment complete. The pt has been NPO since 2358 on 03/14. The patient was only given her Beta Roderick this morning with a sip of water. Will continue to monitor.
--- NOTE | 2017-03-15 13:57 | NUR ---
A NOTE: Transport came to get patient to take her for Angiogram. Dentures removed, Hearing Aid in place and transport team aware. Pre Moderate sedation assessment complete. Pt has been NPO since midnight.
[2017-03-15] MEDS ORDERED: FENTANYL CITRATE INJ 50 MCG/1 ML 2 ML VIAL ONE (14:03)
[2017-03-15] MEDS ORDERED: MIDAZOLAM HCL 1 MG/ML 2ML VIAL ONE (14:03)
[2017-03-15] MEDS ORDERED: NITROGLYCERIN/D5W 100MCG/ML 20ML SYR ONE ×2 (14:13→16:19)
--- NOTE | 2017-03-15 14:28 | Cardiology Follow-Up ---
Subjective Subjective Date of Service: Mar 15, 2017. Pt evaluation today including: conversation w/ patient, physical exam, chart review, lab review, review of studies, review of inpatient medication list Problem List Medical Problems: (1) Cellulitis Status: Acute (2) Noncompliance with medications Status: Acute (3) Pressure ulcer Status: Acute (4) UTI (urinary tract infection) Status: Acute Review of Systems Respiratory: No cough, No shortness of breath Cardiac: No chest pain, No edema Objective Vital Signs Last Vital Signs Documentation Date Time Temp Pulse Resp B/P (MAP) Pulse Ox O2 Delivery O2 Flow Rate FiO2 03/15/17 12:40 36.4 77 16 150/77 96 Room Air Physical Exam: General Appearance: no apparent distress Neck: supple Respiratory/Chest: lungs clear, normal breath sounds, no respiratory distress Cardiovascular: regular rate, rhythm, no edema Abdomen: non tender, soft Extremities: non-tender, no pedal edema, + pertinent finding Neurologic/Psychiatric: alert Skin: normal color Assessment and Plan 1. Right lower extremity ulcerations/osteomyelitis 2. Peripheral artery disease--suspected occluded right SFA 3. Blood loss anemia/GI bleed/duodenal ulcer 4. Acute kidney injury-improved 5. Urinary tract infection 6. Atrial Fibrillation 7. Nonambulatory post multiple prior back surgeries Plan to proceed with bilateral lower extremity angiogram. Further recommendations post procedure. Medications: Current Inpatient Medications Medications (Trade) Dose Ordered Sig/Everardo Route Start Time Stop Time Status Last Admin Dose Admin Acetaminophen (Tylenol Tab) 650 mg Q4H PRN PO 03/08/17 12:45 04/07/17 12:44 03/14/17 20:54 650 MG Ondansetron HCl (Zofran Inj) 4 mg Q6H PRN IV 03/08/17 12:45 04/07/17 12:44 Cholecalciferol (Vitamin D Tab) 1,000 inter.unit DAILY PO 03/09/17 09:00 04/08/17 08:59 03/14/17 08:43 1,000 INTER.UNIT Lorazepam (Ativan Tab) 0.5 mg TID PRN PO 03/08/17 13:45 04/07/17 13:44 03/14/17 20:53 0.5 MG Metoprolol Succinate (Toprol Xl Tab) 50 mg QAM PO 03/09/17 09:00 04/08/17 08:59 03/15/17 08:47 50 MG Senna/Docusate Sodium (Senokot S Tab) 1 tab DAILY PRN PO 03/08/17 13:45 04/07/17 13:44 03/14/17 14:35 1 TAB Pantoprazole Sodium (Protonix Tab) 40 mg BID PO 03/12/17 21:00 04/11/17 20:59 03/14/17 20:53 40 MG Linezolid (Zyvox Tab) 600 mg BID PO 03/13/17 21:00 03/23/17 20:59 03/14/17 20:53 600 MG Lab Results: Test 03/14/17 16:14 Stool Occult Blood NEGATIVE (NEGATIVE)
--- NOTE | 2017-03-15 14:32 | Progress Note ---
Subjective Date of Service: Mar 15, 2017. Subjective pt did agree to procedure, in Or at time of my exam. blood cultures negative and final. afebrile. tolerating abx. Problem List Medical Problems: (1) Cellulitis Status: Acute (2) Noncompliance with medications Status: Acute (3) Pressure ulcer Status: Acute (4) UTI (urinary tract infection) Status: Acute Objective Vital Signs Date Time Temp Pulse Resp B/P (MAP) Pulse Ox O2 Delivery O2 Flow Rate FiO2 03/15/17 12:40 36.4 77 16 150/77 96 Room Air 03/15/17 08:00 36.4 77 16 150/77 (101) 96 Room Air 03/15/17 07:45 Room Air 03/15/17 00:00 Room Air 03/14/17 23:25 37.0 53 16 145/76 (99) 98 Room Air 03/14/17 15:48 36.6 72 16 159/79 (105) 97 Room Air 03/14/17 15:45 Room Air Laboratory Results Last 24 Hours Test 03/14/17 16:14 Stool Occult Blood NEGATIVE Assessment and Plan (1) Osteomyelitis Assessment & Plan: continue zyvox for now, will need to hold ssri , would give 4 weeks. can follow in wound center post d/c (2) UTI (urinary tract infection)
[2017-03-15] MEDS ORDERED: MIDAZOLAM HCL 1 MG/ML 2ML VIAL IV ONE (15:11)
[2017-03-15] MEDS ORDERED: FENTANYL CITRATE INJ 50 MCG/1 ML 2 ML VIAL IV ONE (15:12)
[2017-03-15] MEDS ORDERED: LIDOCAINE HCL 1% 20 ML VIAL SQ ONE (15:12)
[2017-03-15] MEDS ORDERED: HEPARIN SOD (PORCINE) 1000 UNIT/ML 10 ML VIAL ONE (15:28)
[2017-03-15] MEDS ORDERED: HEPARIN SOD (PORCINE) 1000 UNIT/ML 10 ML VIAL IV ONE ×2 (15:29→16:04)
[2017-03-15] MEDS ORDERED: ORM MISCELLANEOUS MED XX ONE (16:21)
[2017-03-15] MEDS ORDERED: IODIXANOL (VISIPAQUE) 270 MG/ML 150ML FLUSH ONE (16:32)
--- NOTE | 2017-03-15 16:43 | Procedure Note ---
Pre-Mod Sedation Assessment General Date of Moderate Sedation: Mar 15, 2017. Vital Signs: Vital Signs Past 12 Hours Date Time Temp Pulse Resp B/P (MAP) Pulse Ox O2 Delivery O2 Flow Rate FiO2 03/15/17 12:40 36.4 77 16 150/77 96 Room Air 03/15/17 08:00 36.4 77 16 150/77 (101) 96 Room Air 03/15/17 07:45 Room Air Review Cardiovascular: regular rate, rhythm, no edema Abdomen: normal bowel sounds, non tender Lungs: chest non-tender, lungs clear Airway Class: III Pre-Sedation Airway Assessment Oral Cavity: Dentures Able to Visualize Vocal Cords: No Short Thick Neck: No Hx of Sleep Apnea: No Smoking Status: Never Smoker Mallampati Classification: Class III ASA Classification: Class III Procedure Planning Contraindications-for Mod Sed: None Yes Notes The planned sedation has been discussed with the patient and consent obtained. I have identified the patient, determined the appropriateness of sedation and have assessed the patient immediately prior to the procedure. All medicine(s) and interventions are by my order.
--- NOTE | 2017-03-15 16:44 | Procedure Note ---
Post-Mod Sedation Assessment General Date of Moderate Sedation Mar 15, 2017. Vital Signs: Vital Signs Past 12 Hours Date Time Temp Pulse Resp B/P (MAP) Pulse Ox O2 Delivery O2 Flow Rate FiO2 03/15/17 12:40 36.4 77 16 150/77 96 Room Air 03/15/17 08:00 36.4 77 16 150/77 (101) 96 Room Air 03/15/17 07:45 Room Air Review - Discharge Criteria Vital Signs Stable: Yes Alert/Oriented/Conversant: Yes Nausea Absent/Minimal: Yes Pain/Discomfort/Absent/Minimal: Yes Normal/Baseline Respirations: Yes Active Bleeding?: No Pt Received D/C Instructions: N/A Prescriptions Given: None Specific Proced. D/C Criteria Distal Pulses Present (Cardiac: Yes Groin site assessed-Card Cath: Yes Voided Prior To Discharge: Yes Discharged Patients Adult Escort/Transportation: Yes
[2017-03-15] MEDS ORDERED: SODIUM CHLORIDE 0.9% 1000ML 1,000 ML IV SCH (16:55)
--- NOTE | 2017-03-15 16:55 | [facility] Operative Report ---
Operative Report Operative Date Mar 15, 2017. Pre-Operative Diagnosis PAD Post-Operative Diagnosis Same Procedure(s) Performed Bilateral Lower Extremity Angiogram, STREET [employer]ER distal SFA, popliteal, TP trunk Moderate Sedation fro 1511 - [address] Mercer Artificial Intelligence Specialist Surgeon(s) Gia Meza Estimated Blood Loss None Findings Left lower extremity: Common iliac - Minimal disease External iliac - Minimal disease Internal iliac - Minimal disease OBSTETRICS GYN PHYSICIAN - Minimal disease Profunda - Minimal disease SFA - Mild distal atherosclerosis Popliteal - diffuse mild disease TPT - mild disease AT - moderate diffuse disease PT - occluded proximally Peroneal - moderate diffuse disease Right lower extremity: Common iliac - Minimal disease External iliac - Minimal disease Internal iliac - Minimal disease OBSTETRICS GYN PHYSICIAN - Minimal disease Profunda - Minimal disease SFA/popliteal - Mild disease proximally, distal SFA calcified 95% occluded with severe diffuse distal disease through popliteal TPT - minimal disease AT - minimal disease PT - minimal disease Peroneal - minimal disease Specimens None Drains None Anesthesia Moderate Complication(s) None Disposition PCU Indications PAD, Right lower extremity ulceration. Description of Procedure Left common femoral access obtained, short 5Fr sheath place RLE angiogram performed with RIM catheter 3rd order selective angiography performed with glide catheter 6Fr 45 cm Destination sheath placed Wired distal SFA/popliteal lesions into STREET LIGHT CLEANER with use of glide-advantage wire and glide catheter Attempted to wire lesion with quickcross and stiff glide but unable to puncture distal cap. STREET [employer] with of distal SFA/popliteal wiht 4.0x 100 balloon x3, then STREET LIGHT [employer]ER of popliteal into TPT with 3.0 x 40 balloon Post procedure good angiographic result, no evidence of dissection and good 3 vessel run-off. Patient tolerated well. Mynx left groin with manual hemostasis. Summary: 1. 95% distal SFA stenosis with severe diffuse disease in popliteal artery 2. Successful STREET [employer]ER of distal SFA/popliteal/TPT with brisk in-line 3 vessel run- off to the foot. Recommendations: - Continue single antiplatelet therapy with Aspirin. - Resume anticoagulation with Xarelto when safe per GI - Continued follow-up with Wound care center I attest to the content of the Intraoperative Record and any orders documented therein. Any exceptions are noted below.
[2017-03-15] MEDS ORDERED: ACETAMINOPHEN 325 MG TAB PO PRN (17:00)
[2017-03-15] MEDS ORDERED: ASPIRIN 325 MG ECTAB PO ONE (17:00)
--- NOTE | 2017-03-15 18:57 | Progress Note ---
Internal Med Progress Note Date of Service: Mar 15, 2017. Provider Documentation: SUBJECTIVE: offers no complain s/p rt leg vascular procedure ;rt SFA COMBAT CONTROL MANAGER done by Dr Mercer today no complain of pain or discomfort no fever or chills wants to go home tomorrow OBJECTIVE: Vital Signs-as noted below Exam: General-elderly female , well appearing , no sign of distress Eyes-sclera non icteric , PERRLA/EOMI ENT-hearing aid present, Neck-trachea midline Lungs-diminished , no rales or wheeze auscultated Heart-regular S1/S2 Abdomen-soft, non tender Extremities-left groin angiogram site intact, no bleeding or swelling, rt leg multiple no healing wounds , rt foot in bandage Neuro-AAO x3, no focal neurological deficit Lab data as noted below. ASSESSMENT & PLAN: NON HEALING RIGHT FOOT ULCERS/IN SETTING OF PERIPHERAL ARTERIAL DISEASE Culture from 02/19/17 growing MRSA and was started on Bactrim ; DISCONTINUED DUE TO WILLIAN was On IV Vanco ; repeat Wound cx grew corynebacterium appreciate ID eval , transitioned to PO Zyvox ( pt does not want any more IV Abx ) will need 4 weeks of tx SSRI Discontinued for drug interaction Wound care consulted -appreciate input Continue daily wound care/will need continued wound clinic follow up s/p vascular procedure : COMBAT CONTROL MANAGER of distal SFA/popliteal/TPT by Dr Mercer today OSTEOMYELITIS OF RT FOOT Foot XR concerning for possible osteomyelitis MRI of RLE showed findings compatible with osteomyelitis with cortical destruction involving the mid and distal portions of the third proximal phalanx, third DIP joint and third middle phalanx with possible adjacent skin ulcer. Surgery consulted , appreciate input pt will need amputation of rt 3rd toe S/P rt lower ext vascular procedure done today does not want toe amputation /foot surgery wants to go home with oral antibiotics PERIPHERAL ARTERY DISEASE with rt SFA occlusion pt been followed by Interventional Cardiology Dr. Mercer S/P Angiogram of rt lower ext today shows 1. 95% distal SFA stenosis with severe diffuse disease in popliteal artery 2. Successful COMBAT CONTROL MANAGER of distal SFA/popliteal/TPT with brisk in-line 3 vessel run- off to the foot. ACUTE BLOOD LOSS ANEMIA/GI BLEED /PEPTIC ULCER DISEASE Hb remains stable no further episode of GI bleed S/P 1 unit of PRBC tx on 03/10 appreciate GI eval EGD shows 15 mm duodenal ulcer with evidence of bleeding Continue to hold Xarelto for another day can be resumed tomorrow if H& H remains stable Protonix 40mg BID for 6 weeks, then continue Protonix 40mg daily Will need a repeat EGD in 3 months for surveillance Avoid NSAIDs Acute Kidney Injury on ckd stage 3 resolved Creatine on admission 1.8 Possible related to poor oral intake, diarrhea in combination with Bactrim Bactrim was d/c Creatine improved to approx baseline Losartan/furosemide have been on hold will follow PRP as pt given contrast today for rt lower ext angiogram /COMBAT CONTROL MANAGER UTI Urine cx grew E.Coli ESBL appreciate ID eval treated with Ertapenem, completed # 3 days tx CHRONIC ATRIAL FIBRILLATION Rate controlled on metoprolol Xarelto was on hold due to GI bleed can be resumed prior to discharge if H&H remains stable /and if no vascular or surgical procedure done no further episode of dark stool for evidence of GI bleed HX OF PE Xarelto on hold for GI bleed /anemia HTN continue metoprolol Lasix and losartan on hold for WILLIAN will resumed as Cr at baseline DVT PROPHYLAXIS SCDs due to anemia and duodenal ulcer CODE STATUS FULL NO MECH VENTILATION DISPOSITION Refused to go to rehab or SNF wants to be discharged home with home health will need continued follow up at Wound Care clinic Medicine follow up with Dr Burton Consultants: Interventional Cardiology Wound care ID [facility] Procedures: EGD Vital Signs: Date Time Temp Pulse Resp B/P (MAP) Pulse Ox O2 Delivery O2 Flow Rate FiO2 03/16/17 16:45 Room Air 03/16/17 15:40 36.7 59 18 130/76 (94) 97 Room Air 03/16/17 11:52 36.4 76 14 128/60 (82) 97 Room Air 03/16/17 09:34 74 101/59 (73) 03/16/17 08:12 95 Room Air 03/16/17 08:00 Room Air 03/16/17 07:55 36.7 66 14 129/62 (84) 95 Room Air 03/16/17 03:30 36.8 73 16 135/75 (95) 94 Room Air 03/16/17 00:30 Room Air 03/15/17 22:45 36.5 67 16 134/75 (94) 97 Room Air 03/15/17 21:45 36.3 78 16 132/68 (89) 96 Room Air 03/15/17 20:45 36.6 73 16 149/62 (91) 99 Nasal Cannula 2.0 Lab Results:
[2017-03-15] MEDS: LORAZEPAM 0.5 MG TAB PO PRN (20:08)
[2017-03-16] VITALS (7 sets, daily range): BP systolic 101–135; BP diastolic 59–76; PULSE 59–76; TEMP 36.4–36.8; O2SAT 94–97
--- NOTE | 2017-03-16 03:40 | NUR ---
ID: Pt A&Ox4, denies pain, remains in bed at this time, OOB with 2 assist to chair or BSC. IV is SL, pt on RA. Several optifoams on lower extremities, see assessment, R foot dressing intact. L groin surgical site intact, no drainage. Pt repositioned throughout shift, voiding on bedpan. Call padilla in reach throughout shift. Plan for discharge home with home health when cleared by physician.
--- NOTE | 2017-03-16 07:54 | Medical Consult ---
Consultation Date of Consultation: Mar 16, 2017. Attending Physician: Edyta Gutierres M.D. History of Present Illness 89 y/o female with PVD, ulcers or right midfoot and 3rd toe underwent FOOT CASTER of distal SFA/popliteal/TPT with brisk in-line 3 vessel run-off to the foot. She has had these ulcers for more than a month and has been following with wound clinic. She has been wearing an orthotic shoe for the past month but had been wearing her regular shoes at home because of her drop foot. She lives at home alone, has some assistance from family but home health thought she was unsafe at home. Past Medical/Surgical History Medical Problems: (1) Acoustic neuroma Status: Chronic (2) Atrial fibrillation Status: Chronic (3) Discitis Permanent Comment: s/p surgery resulting in incomplete paraplegia Status: Resolved (4) Duodenitis Status: Resolved (5) Esophageal stricture Status: Chronic (6) H. pylori infection Status: Resolved (7) HTN (hypertension) Status: Chronic (8) Incomplete paraplegia Status: Chronic (9) MRSA (methicillin resistant Staphylococcus aureus) Status: Chronic (10) Pulmonary embolism Status: Chronic (11) PVD (peripheral vascular disease) Status: Chronic Surgical Problems: (1) History of back surgery Status: Chronic (2) S/P dilatation of esophageal stricture Status: Chronic Family History Patient reports no known family medical history. Social History Smoking Status: Never Smoker Alcohol Use: none Housing Status: assisted living Allergies Coded Allergies: Celecoxib (Verified Adverse Reaction, Unknown, gi upset, 03/08/17) Current Inpatient Medications Current Inpatient Medications Medications (Trade) Dose Ordered Sig/Everardo Route Start Time Stop Time Status Last Admin Dose Admin Ondansetron HCl (Zofran Inj) 4 mg Q6H PRN IV 03/08/17 12:45 04/07/17 12:44 Cholecalciferol (Vitamin D Tab) 1,000 inter.unit DAILY PO 03/09/17 09:00 04/08/17 08:59 03/14/17 08:43 1,000 INTER.UNIT Lorazepam (Ativan Tab) 0.5 mg TID PRN PO 03/08/17 13:45 04/07/17 13:44 03/15/17 20:08 0.5 MG Metoprolol Succinate (Toprol Xl Tab) 50 mg QAM PO 03/09/17 09:00 04/08/17 08:59 03/15/17 08:47 50 MG Senna/Docusate Sodium (Senokot S Tab) 1 tab DAILY PRN PO 03/08/17 13:45 04/07/17 13:44 03/14/17 14:35 1 TAB Pantoprazole Sodium (Protonix Tab) 40 mg BID PO 03/12/17 21:00 04/11/17 20:59 03/15/17 20:13 40 MG Linezolid (Zyvox Tab) 600 mg BID PO 03/13/17 21:00 03/23/17 20:59 03/15/17 20:09 600 MG Acetaminophen (Tylenol Tab) 650 mg Q4H PRN PO 03/15/17 17:00 04/14/17 16:59 Aspirin (Ecotrin Tab) 81 mg QAM PO 03/16/17 09:00 04/15/17 08:59 Physical Exam Date Time Temp Pulse Resp B/P (MAP) Pulse Ox O2 Delivery O2 Flow Rate FiO2 03/16/17 03:30 36.8 73 16 135/75 (95) 94 Room Air 03/16/17 00:30 Room Air 03/15/17 22:45 36.5 67 16 134/75 (94) 97 Room Air 03/15/17 21:45 36.3 78 16 132/68 (89) 96 Room Air 03/15/17 20:45 36.6 73 16 149/62 (91) 99 Nasal Cannula 2.0 03/15/17 18:15 36.5 67 16 153/74 (100) 93 Room Air 03/15/17 17:15 98 Room Air 03/15/17 17:15 98 Room Air 03/15/17 17:15 36.8 18 150/77 (101) 98 Room Air 03/15/17 16:52 36.4 68 16 140/61 95 Room Air 03/15/17 16:47 36.4 53 16 131/62 95 Room Air 03/15/17 12:40 36.4 77 16 150/77 96 Room Air 03/15/17 08:00 36.4 77 16 150/77 (101) 96 Room Air 03/15/17 07:45 Room Air Extremities/Musculoskelatal: + pertinent finding (RLE 2x3 cm ulcer midfoot, 0.5 cm ulcer 3rd toe) Neurologic/Psych: alert, oriented x 3 Laboratory Results Last 24 Hours Test 03/15/17 17:01 Kaolin Activated Coagulation Time 213 SECONDS MRI IMPRESSION: 1. Findings compatible with osteomyelitis with cortical destruction involving the mid and distal portions of the third proximal phalanx, third DIP joint and third middle phalanx with possible adjacent skin ulcer. 2. Moderate bone marrow edema with relative preservation of T1 marrow signal involving the middle and distal phalanges of the second digit suggests reactive changes or early acute osteomyelitis. Follow-up recommended. 3. Soft tissue and intramuscular edema throughout the foot suggests cellulitis with myositis. 4. Multifocal degenerative changes as above. The above report was generated using voice recognition software. It may contain grammatical, syntax or spelling errors. Electronically signed by: Alvaro Sanders M.D. 03/11/2017 10:31 PM Dictated Date/Time: 03/11/2017 10:17 PM Assessment & Plan PAD, osteomyelitis right 3rd toe Seen with Dr. Head Recommend amputation of 3rd toe, can be done next week or as an outpatient She would not need rehab for that procedure specifically, she is going to think about it
[2017-03-16] MEDS: LORAZEPAM 0.5 MG TAB PO PRN ×2 (09:30→21:02)
[2017-03-16] MEDS: PANTOprazole SOD 40 MG TAB PO SCH ×2 (09:31→20:58)
[2017-03-16] MEDS: CHOLECALCIFEROL 1000 INTER.UNIT TAB PO SCH (09:31)
[2017-03-16] MEDS: LINEZOLID 600 MG TAB PO SCH ×2 (09:32→20:57)
[2017-03-16] MEDS: ASPIRIN 81 MG ECTAB PO SCH (09:33)
[2017-03-16] MEDS: METOPROLOL SUCC 50MG EXT REL TAB PO SCH (09:34)
--- NOTE | 2017-03-16 10:30 | Progress Note ---
Subjective Date of Service: Mar 16, 2017. Subjective Pt evaluation today including: conversation w/ patient, physical exam, chart review, lab review pt seen in followup s/p vascular procedure. tolerated well. states some diarrhea this am, no abd pain, no f/c. no n/v. states she is considering stopping her abx. surgery rec toe amp but pt has declined. all remaining ros reviewed and are negative. Problem List Medical Problems: (1) Cellulitis Status: Acute (2) Noncompliance with medications Status: Acute (3) Pressure ulcer Status: Acute (4) UTI (urinary tract infection) Status: Acute Objective Vital Signs Date Time Temp Pulse Resp B/P (MAP) Pulse Ox O2 Delivery O2 Flow Rate FiO2 03/16/17 09:34 74 101/59 (73) 03/16/17 08:12 95 Room Air 03/16/17 08:00 Room Air 03/16/17 07:55 36.7 66 14 129/62 (84) 95 Room Air 03/16/17 03:30 36.8 73 16 135/75 (95) 94 Room Air 03/16/17 00:30 Room Air 03/15/17 22:45 36.5 67 16 134/75 (94) 97 Room Air 03/15/17 21:45 36.3 78 16 132/68 (89) 96 Room Air 03/15/17 20:45 36.6 73 16 149/62 (91) 99 Nasal Cannula 2.0 03/15/17 18:15 36.5 67 16 153/74 (100) 93 Room Air 03/15/17 17:15 98 Room Air 03/15/17 17:15 98 Room Air 03/15/17 17:15 36.8 18 150/77 (101) 98 Room Air 03/15/17 16:52 36.4 68 16 140/61 95 Room Air 03/15/17 16:47 36.4 53 16 131/62 95 Room Air 03/15/17 12:40 36.4 77 16 150/77 96 Room Air Physical Exam General Appearance: WD/WN, no apparent distress Eyes: normal inspection, EOMI Neck: supple Respiratory/Chest: lungs clear, normal breath sounds, no respiratory distress Cardiovascular: regular rate, rhythm, no edema Abdomen: soft Extremities: non-tender, no pedal edema Neurologic/Psychiatric: alert, oriented x 3 Skin: normal color, no rash Comments: dressing c/d/i Laboratory Results Item Value Date Time Blood Culture - Final Complete 03/08/17 1631 Blood NO GROWTH Blood Culture - Final Complete 03/08/17 1616 Blood NO GROWTH Last 24 Hours Test 03/15/17 17:01 Kaolin Activated Coagulation Time 213 SECONDS Assessment and Plan (1) Osteomyelitis Assessment & Plan: continue zyvox for now, will need to hold ssri , would give 4 weeks. can follow in wound center post d/c ok for d/c from ID standpoint. (2) UTI (urinary tract infection)
--- NOTE | 2017-03-16 11:38 | NUR ---
Reviewed chart. Spoke with Pt. She still plans to return home at discharge. She has an outstanding referral to [facility]. Pt had told nursing her daughter is coming in from [place] tomorrow. She states she will need transport to home at discharge. She does not have any money available to pay for transport up front. Will need to attempt to arrange transport home at discharge but will likely not be able to use [facility] as they require payment up front. Per MD, Pt is for anticipated discharge over the weekend. Will update the Office of Aging. Case Management will follow.
[2017-03-16] MEDS ORDERED: LOPERAMIDE HCL 2 MG CAP PO PRN (11:45)
--- NOTE | 2017-03-16 19:06 | Progress Note ---
Internal Med Progress Note Date of Service: Mar 16, 2017. Provider Documentation: SUBJECTIVE: had episodes of diarrhea today feels weak and tired evaluated by surgery does not want to have toe surgery done this admission OBJECTIVE: Vital Signs-as noted below Exam: General-elderly female , well appearing , no sign of distress Eyes-sclera non icteric , PERRLA/EOMI ENT-hearing aid present, Neck-trachea midline Lungs-diminished , no rales or wheeze auscultated Heart-regular S1/S2 Abdomen-soft, non tender Extremities-left groin angiogram site intact, no bleeding or swelling, rt leg multiple no healing wounds , rt foot in bandage Neuro-AAO x3, no focal neurological deficit Lab data as noted below. ASSESSMENT & PLAN: NON HEALING RIGHT FOOT ULCERS/IN SETTING OF PERIPHERAL ARTERIAL DISEASE Culture from 02/19/17 growing MRSA and was started on Bactrim ; DISCONTINUED DUE TO WILLIAN was On IV Vanco ; repeat Wound cx grew corynebacterium appreciate ID eval , transitioned to PO Zyvox ( pt does not want any more IV Abx ) will need 4 weeks of tx SSRI Discontinued for drug interaction Wound care consulted -appreciate input Continue daily wound care/will need continued wound clinic follow up s/p vascular procedure : CATTLE DRIVER of distal SFA/popliteal/TPT by Dr Mercer today OSTEOMYELITIS OF RT FOOT Foot XR concerning for possible osteomyelitis MRI of RLE showed findings compatible with osteomyelitis with cortical destruction involving the mid and distal portions of the third proximal phalanx, third DIP joint and third middle phalanx with possible adjacent skin ulcer. 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 Mercer S/P Angiogram of rt lower ext shows 1. 95% distal SFA stenosis with severe diffuse disease in popliteal artery 2. Successful CATTLE DRIVER of distal SFA/popliteal/TPT with brisk in-line 3 vessel run- off to the foot. ACUTE BLOOD LOSS ANEMIA/GI BLEED /PEPTIC ULCER DISEASE Hb remains stable no further episode of GI bleed S/P 1 unit of PRBC tx on 03/10 appreciate GI eval EGD shows 15 mm duodenal ulcer with evidence of bleeding Continue to hold Xarelto for another day can be resumed tomorrow if H& H remains stable Protonix 40mg BID for 6 weeks, then continue Protonix 40mg daily Will need a repeat EGD in 3 months for surveillance Avoid NSAIDs Acute Kidney Injury on ckd stage 3 resolved Creatine on admission 1.8 Possible related to poor oral intake, diarrhea in combination with Bactrim Bactrim was d/c Creatine improved to approx baseline Losartan/furosemide have been on hold will follow PRP as pt given contrast today for rt lower ext angiogram /CATTLE DRIVER UTI Urine cx grew E.Coli ESBL appreciate ID eval treated with Ertapenem, completed # 3 days tx CHRONIC ATRIAL FIBRILLATION Rate controlled on metoprolol Xarelto was on hold due to GI bleed can be resumed prior to discharge if H&H remains stable /pt declines surgical procedure no further episode of dark stool for evidence of GI bleed HX OF PE Xarelto on hold for GI bleed /anemia will be resumed on discharge if pt declines any more procedure HTN continue metoprolol Lasix and losartan on hold for WILLIAN will resumed as Cr at baseline DVT PROPHYLAXIS SCDs due to anemia and duodenal ulcer CODE STATUS FULL NO MECH VENTILATION DISPOSITION Refused to go to rehab or SNF wants to be discharged home with home health referral made to [facility]. will need continued follow up at Wound Care clinic Medicine follow up with Dr Burton Consultants: Interventional Cardiology Wound care ID [facility] Procedures: EGD Vital Signs: Date Time Temp Pulse Resp B/P (MAP) Pulse Ox O2 Delivery O2 Flow Rate FiO2 03/16/17 16:45 Room Air 03/16/17 15:40 36.7 59 18 130/76 (94) 97 Room Air 03/16/17 11:52 36.4 76 14 128/60 (82) 97 Room Air 03/16/17 09:34 74 101/59 (73) 03/16/17 08:12 95 Room Air 03/16/17 08:00 Room Air 03/16/17 07:55 36.7 66 14 129/62 (84) 95 Room Air 03/16/17 03:30 36.8 73 16 135/75 (95) 94 Room Air 03/16/17 00:30 Room Air 03/15/17 22:45 36.5 67 16 134/75 (94) 97 Room Air 03/15/17 21:45 36.3 78 16 132/68 (89) 96 Room Air 03/15/17 20:45 36.6 73 16 149/62 (91) 99 Nasal Cannula 2.0
--- NOTE | 2017-03-16 19:27 | Progress Note ---
Progress Note Date of Service Mar 16, 2017. Progress Note ATTENDING NOTE : pt declined to have surgical procedure of infected rt 3rd toe even after repeated counselling wants to go home tomorrow Alex resumed waiting for daughter to arrive from [place] tomorrow to give her a ride home pt will be discharged home tomorrow with home health
[2017-03-16] MEDS ORDERED: RIVAROXABAN TAB 15 MG TAB PO SCH (21:00)
--- NOTE | 2017-03-17 00:45 | NUR ---
ID Note: A/Ox4. Pt denies any pain at this time. OOB with max assist and a walker to pivot. Tolerating an AHA diet. Pt plans to return home when discharged.
[2017-03-17 07:23] VITALS: BP 153/79; PULSE 79; TEMP 36.6; O2SAT 95
[2017-03-17] MEDS ORDERED: NURSING VERBAL MED ORDER ONE (08:15)
[2017-03-17] MEDS: LORAZEPAM 0.5 MG TAB PO PRN (08:21)
[2017-03-17] MEDS: CHOLECALCIFEROL 1000 INTER.UNIT TAB PO SCH (08:22)
[2017-03-17] MEDS: ASPIRIN 81 MG ECTAB PO SCH (08:23)
[2017-03-17] MEDS: PANTOprazole SOD 40 MG TAB PO SCH (08:23)
[2017-03-17] MEDS: METOPROLOL SUCC 50MG EXT REL TAB PO SCH (08:24)
[2017-03-17] MEDS: LINEZOLID 600 MG TAB PO SCH (08:25)
[2017-03-17] MEDS ORDERED: LACTOBACILLUS ACIDOPHILUS 1 GM PACK PO SCH (08:30)
[2017-03-17] MEDS ORDERED: RIVAROXABAN TAB 15 MG TAB PO ONE (08:30)
[2017-03-17 09:24] LABS: CREATININE 0.87 mg/dl (0.60-1.20); POTASSIUM 3.6 mmol/L (3.5-5.1)
[2017-03-17 11:26] VITALS: BP 153/79; PULSE 79; TEMP 36.6; O2SAT 95
--- NOTE | 2017-03-17 11:28 | Discharge Instructions ---
Discharge Instructions Date of Service Mar 17, 2017. Admission Reason for Admission: WILLIAN Discharge Discharge Diagnosis / Problem: OSTEOMYELITIS 3RD RT TOE/NON HEALING WOUNDS RT LEG /PERIPHERAL VASCULAR DIS Discharge Goals Goal(s): Decrease discomfort, Improve function, Increase independence, Improve disease control, Diagnostic testing, Therapeutic intervention Activity Recommendations Activity Limitations: as noted below ( TOLERATED ) Weightbearing Status: Right non-weightbearing . Instructions / Follow-Up Instructions / Follow-Up HOSPITAL FOLLOW UP WITH DR PROCTOR , PLEASE CALL OFFICE FOR APPOINTMENT CONTINUE TO FOLLOW UP AT THE WOUND CLINIC SURGERY FOLLOW UP WITH DR HOOKER IN 2-3 WEEKS TO DISCUSS REGARDING OPTION FOR RT 2ND TOE AMPUTATION IT IS VERY IMPORTANT FOR YOU TO COMPLETE 4 WEEKS OF ANTIBIOTICS WILL NEED GASTROENTEROLOGY FOLLOW UP IN 3-4 MONTHS , MAY NEED REPEAT EGD TO ASSESS HEALING OF STOMACH ULCER DO NOT BEAR WAIT /DO NOT WALK ON RT LEG Current Hospital Diet Patient's current hospital diet: AHA Diet (Heart Healthy) Discharge Diet Recommended Diet: AHA Diet (Heart Healthy) Procedures Procedures Performed: Bilateral Lower Extremity Angiogram, PATTERN DEVELOPER distal SFA, popliteal, TP trunk Moderate Sedation fro 1511 - 1630 Pending Studies Studies pending at discharge: no Medical Emergencies . Who to Call and When: Medical Emergencies: If at any time you feel your situation is an emergency, please call 911 immediately. . Non-Emergent Contact Non-Emergency issues call your: Primary Care Provider . . "Provider Documentation" section prepared by Edyta Gutierres. . VTE Core Measure Inpt VTE Proph given/why not?: Other Anticoagulation (XERALTO )
--- NOTE | 2017-03-17 11:35 | Discharge Summary ---
Discharge Summary Date of Service Mar 17, 2017. Discharge Summary Admission Date: Mar 08, 2017 at 12:47 Discharge Date: Mar 17, 2017 Discharge Disposition: Home with services Principal Diagnosis: OSTEOMYELITIS 3RD RT TOE/NON HEALING WOUNDS RT LEG /PERIPHERAL VASCULAR DIS Procedures: EGD Procedures Performed: Bilateral Lower Extremity Angiogram, BOOM MAN distal SFA, popliteal, TP trunk Moderate Sedation fro 1511 - 1630 Consultations: Cardio Wound care Medication Reconciliation New Medications: Linezolid (Linezolid) 600 Mg Tab 600 MG PO BID for 28 Days, #56 TAB Pantoprazole (Pantoprazole Sodium) 40 Mg Tab 40 MG PO BID for 42 Days, #84 TAB 3 Refills prtonix 40 mg twice daily for 6 weeks then continue 40 mg once daily Continued Medications: Acetaminophen (Tylenol) 500 Mg Tab 500 MG PO BID, TAB Cholecalciferol (Vitamin D3) 1,000 Unit Tab 1 TAB PO DAILY for 90 Days, #90 TAB 3 Refills Diclofenac Sodium (Topical) (Voltaren 1% Top Gel) 1 % Gel 2 GM TOP TID Furosemide (Lasix) 20 Mg Tab 20 MG PO 3XWK PRN for edema Lorazepam (Ativan) 0.5 Mg Tab 0.5 MG PO TID PRN for Anxiety, TAB Losartan Potassium (Cozaar) 50 Mg Tab 50 MG PO PM, TAB Metoprolol Succinate (Toprol Xl) 50 Mg Tabcr 50 MG PO QAM, #30 TAB Rivaroxaban (Xarelto) 15 Mg Tab 15 MG PO PM, TAB Sennosides-Docusate Sodium (Stool Softener) 1 Tab Tab 1 TAB PO DAILY PRN for Constipation Tolnaftate (Tinactin) 1 % Aer Unknown Dose TOP UD APPLY BETWEEN ABDOMINAL FOLDS Discontinued Medications: Citalopram Hydrobromide (Celexa) 20 Mg Tab 20 MG PO QAM, TAB Sulfa/Trimethoprim (Bactrim Ds 800MG/160MG) Tab 1 TAB PO BID, #28 TAB Referrals At Discharge Follow up Referrals: International Representative Referral - Please Call For Appointment with Christine Rivera , DO Surgery Referral - Within 1-2 Weeks with Abraham Hooker M.D. Admission Information HPI (per Admitting provider): 89 year old female who presents to the ED with diarrhea. Patient is somewhat a poor historian. I discussed the case with patient's PCP, Dr. Burton. She reports that the patient had been living with her daughter in [place] until about 4 months ago. She saw the patient in the office at the beginning of January and labs showed a new anemia with hgb 9.9 with low iron levels. She was started on iron replacement at that time. Patient also has been following with the wound care center for wounds of her right foot. She was recently placed on Bactrim due to would culture from 02/19/17 growing MRSA. Patient reports her stools have been dark since starting the iron. She also has been constipated at times. She reports nausea and poor appetite since being on the Bactrim. This morning patient reports severe diarrhea that was black in color. She denies BRBPR, abdominal pain, or vomiting. She denies fever and chills. No chest pain or shortness of breath. She denies lightheadedness, dizziness, diaphoresis, or syncopal events. No urinary symptoms. In the ER, patient's hgb is 9.5, creat is 1.8 (up from 0.9 baseline), K+ is mildly high at 5.2. Patient was given insulin and D50 and Protonix 80mg IV. Physical Exam (per Admitting): General Appearance: WD/WN, no apparent distress, + pertinent finding ( chronically ill appearing) Head: normocephalic, atraumatic Eyes: normal inspection, EOMI, sclerae normal ENT: hearing grossly normal, + pertinent finding (dry mucous membranes) Neck: supple, no JVD, trachea midline Respiratory/Chest: lungs clear, normal breath sounds, no respiratory distress Cardiovascular: no edema, + irregularly irregular (rate controlled), + abnormal peripheral pulses (diminished pedal pulses) Abdomen/GI: normal bowel sounds, non tender, soft, no organomegaly Extremities/Musculoskelatal: normal inspection, no calf tenderness, no pedal edema Neurologic/Psych: no motor/sensory deficits, alert, normal mood/affect, oriented x 3 Skin: + pertinent finding (right foot with ulcers noted to the 2nd and 3rd toes, base of the 2nd metatarsal, large ulcer to the dorsal aspect of the foot; foul odor; scattered abrasions over the anterior aspect of the right lu) Hospital Course ready to be discharged home today . daughter and son in law at bedside pt reluctant to take Oral Antibiotic Zyvox as she believes it is giving her diarrhea pt is counselled -stool for c diff X2 negative pt can utilize PRN Imodium for loose stool , encouraged to take Probiotics/over the counter Lactinex she has infected wounds with infection going to bone of her rt toe with out the oral Zyvox her other option is IV antibiotic which she is absolutely against it Daughter convinced the pt -willing to try to take the Zyvox , needs to complete 4 weeks course pt is encouraged to follow up with Surgery team in 2-3 weeks to discuss option for toe amputation home health visiting nurse arranged pt will also continue to be receive care at the Wound care center P/E: General-elderly female , well appearing , no sign of distress Eyes-sclera non icteric , PERRLA/EOMI ENT-hearing aid present, Neck-trachea midline Lungs-diminished , no rales or wheeze auscultated Heart-regular S1/S2 Abdomen-soft, non tender Extremities-left groin angiogram site intact, no bleeding or swelling, rt leg multiple no healing wounds , rt foot in bandage Neuro-AAO x3, no focal neurological deficit NON HEALING RIGHT FOOT ULCERS/IN SETTING OF PERIPHERAL ARTERIAL DISEASE Culture from 02/19/17 MRSA repeat Wound cx grew corynebacterium appreciate ID eval , transitioned to PO Zyvox ( pt does not want any more IV Abx ) will need 4 weeks of tx SSRI Discontinued for drug interaction Wound care consulted -appreciate input Continue daily wound care/will need continued wound clinic follow up s/p vascular procedure : BOOM MAN of distal SFA/popliteal/TPT by Dr Mercer today OSTEOMYELITIS OF RT FOOT Foot XR concerning for possible osteomyelitis MRI of RLE showed findings compatible with osteomyelitis with cortical destruction involving the mid and distal portions of the third proximal phalanx, third DIP joint and third middle phalanx with possible adjacent skin ulcer. 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 Mercer S/P Angiogram of rt lower ext shows 1. 95% distal SFA stenosis with severe diffuse disease in popliteal artery 2. Successful BOOM MAN of distal SFA/popliteal/TPT with brisk in-line 3 vessel run- off to the foot. ACUTE BLOOD LOSS ANEMIA/GI BLEED /PEPTIC ULCER DISEASE Hb remains stable ~10 no further episode of GI bleed S/P 1 unit of PRBC tx on 03/10 appreciate GI eval EGD shows 15 mm duodenal ulcer with evidence of bleeding Xarelto resumed Protonix 40mg BID for 6 weeks, then continue Protonix 40mg daily Will need a repeat EGD in 3 months for surveillance Avoid NSAIDs Acute Kidney Injury on ckd stage 3 resolved ; Cr improved to baseline Creatine on admission 1.8 Possible related to poor oral intake, diarrhea in combination with Bactrim Losartan/furosemide resumed on discharge will follow PRP as pt given contrast today for rt lower ext angiogram /BOOM MAN UTI/ESBL E COLI Urine cx grew E.Coli ESBL appreciate ID eval treated with Ertapenem, completed # 3 days tx CHRONIC ATRIAL FIBRILLATION Rate controlled on metoprolol Xarelto resumed HX OF PE Xarelto resumed HTN continue metoprolol Lasix and losartan resumed as Cr at baseline DVT PROPHYLAXIS Xarelto CODE STATUS FULL NO MECH VENTILATION DISPOSITION Discharged home today with home health referral [facility] to [facility]. will need continued follow up at Wound Care clinic Medicine follow up with Dr Burton Consultants: Interventional Cardiology Wound care ID [facility] Procedures: EGD RT LOWER EXT ANGIOGRAM AND BOOM MAN ( PER CUTANEOUS ANGIOPLASTY ) Total time spent on discharge = 50 MINS This includes examination of the patient, discharge planning, medication reconciliation, and communication with other providers. Discharge Instructions Discharge Instructions Date of Service Mar 17, 2017. Admission Reason for Admission: WILLIAN Discharge Discharge Diagnosis / Problem: OSTEOMYELITIS 3RD RT TOE/NON HEALING WOUNDS RT LEG /PERIPHERAL VASCULAR DIS Discharge Goals Goal(s): Decrease discomfort, Improve function, Increase independence, Improve disease control, Diagnostic testing, Therapeutic intervention Activity Recommendations Activity Limitations: as noted below ( TOLERATED ) Weightbearing Status: Right non-weightbearing . Instructions / Follow-Up Instructions / Follow-Up HOSPITAL FOLLOW UP WITH DR BURTON , PLEASE CALL OFFICE FOR APPOINTMENT CONTINUE TO FOLLOW UP AT THE WOUND CLINIC SURGERY FOLLOW UP WITH DR HOOKER IN 2-3 WEEKS TO DISCUSS REGARDING OPTION FOR RT 2ND TOE AMPUTATION IT IS VERY IMPORTANT FOR YOU TO COMPLETE 4 WEEKS OF ANTIBIOTICS WILL NEED GASTROENTEROLOGY FOLLOW UP IN 3-4 MONTHS , MAY NEED REPEAT EGD TO ASSESS HEALING OF STOMACH ULCER DO NOT BEAR WAIT /DO NOT WALK ON RT LEG Current Hospital Diet Patient's current hospital diet: AHA Diet (Heart Healthy) Discharge Diet Recommended Diet: AHA Diet (Heart Healthy) Procedures Procedures Performed: Bilateral Lower Extremity Angiogram, BOOM MAN distal SFA, popliteal, TP trunk Moderate Sedation fro 1511 - 1630 Pending Studies Studies pending at discharge: no Medical Emergencies . Who to Call and When: Medical Emergencies: If at any time you feel your situation is an emergency, please call 911 immediately. . Non-Emergent Contact Non-Emergency issues call your: Primary Care Provider . . "Provider Documentation" section prepared by Edyta Gutierres. . VTE Core Measure Inpt VTE Proph given/why not?: Other Anticoagulation (XERALTO ) Additional Copies To Asia Burton M.D., Salvatore, M.D.
--- NOTE | 2017-03-17 15:03 | NUR ---
FAXED D/C TO [facility]
[2017-05-02] MEDS ORDERED: TRAZ50TA35 PO (10:23)
[2017-05-14] MEDS ORDERED: LEVO1TAB34 PO (14:04)
[2017-05-14] MEDS ORDERED: CEPH-571 PO (14:04)
[2017-08-10] MEDS ORDERED: PANT40TA PO (16:42)
[2017-08-10] MEDS ORDERED: ROPI0.5T15 PO (16:42)
[2017-08-10] MEDS ORDERED: MELA1CAP9 PO (16:42)
[2017-08-10] MEDS ORDERED: RIVA1TAB PO (16:42)
[2017-08-10] MEDS ORDERED: LORA-741 PO (16:42)
[2017-08-16] MEDS ORDERED: CEPH500C2 PO (15:43)
[2017-08-16] MEDS ORDERED: MENTOIN EXT (15:43)
[2017-08-16] MEDS ORDERED: LCTX PO (15:43)
[2017-08-16] MEDS ORDERED: RBTDMUDC5 PO (15:43)
[2017-08-16] MEDS ORDERED: LORA-741 PO (15:45)
[2017-08-24] MEDS ORDERED: LEVO1TAB33 PO (13:15)
== END 2017-03-17 13:00 | disposition home health service (06) | DRG 252 ==
LOC: EDBD 09:42 → C.EDC 09:44 → C.MSW 12:47 → EDBEDREQ 13:37 → ENRESERV 14:15
PROVIDERS: ADMIT Internal Medicine; ATTEND Hospitalist
PROC: 3E0G8GC Introduction of Other Therapeutic Substance into Upper GI, Via Natural or Artificial Opening Endoscopic (ICD-10-PCS; principal; 2017-03-09 14:23)
PROC: 0DB68ZX Excision of Stomach, Via Natural or Artificial Opening Endoscopic, Diagnostic (ICD-10-PCS; principal; 2017-03-09 14:23)
PROC: 0HDMXZZ Extraction of Right Foot Skin, External Approach (ICD-10-PCS; 2017-03-12)
PROC: 047K3ZZ Dilation of Right Femoral Artery, Percutaneous Approach (ICD-10-PCS; 2017-03-15)
DX: I73.9 Peripheral vascular disease, unspecified (principal); K26.4 Chronic or unspecified duodenal ulcer with hemorrhage; N17.9 Acute kidney failure, unspecified; N39.0 Urinary tract infection, site not specified; D62 Acute posthemorrhagic anemia; M86.9 Osteomyelitis, unspecified; I48.2 Chronic atrial fibrillation; I12.9 Hypertensive chronic kidney disease with stage 1 through stage 4 chronic kidney disease, or unspecified chronic kidney disease; L89.892 Pressure ulcer of other site, stage 2; K22.2 Esophageal obstruction; K44.9 Diaphragmatic hernia without obstruction or gangrene; K29.50 Unspecified chronic gastritis without bleeding; B96.20 Unspecified Escherichia coli [E. coli] as the cause of diseases classified elsewhere; B95.62 Methicillin resistant Staphylococcus aureus infection as the cause of diseases classified elsewhere; T37.0X5A Adverse effect of sulfonamides, initial encounter; N18.3 Chronic kidney disease, stage 3 (moderate); R19.7 Diarrhea, unspecified; Z79.01 Long term (current) use of anticoagulants; Z79.899 Other long term (current) drug therapy; Z86.711 Personal history of pulmonary embolism